=== PATIENT | female | born 1945 | race Caucasian/White ===

== ENCOUNTER 2017-08-10 15:36 | Inpatient (IN) | payer OTHER, MEDICAID ==
[2017-08-10 16:57] VITALS: BMI 20.5
[2017-08-10] MEDS ORDERED: FLUVIRIN IM ONE (16:57)
[2017-08-10] MEDS ORDERED: PREVNAR 13 IM ONE (16:57)
[2017-08-10 17:34] LABS: BASOPHILS % (AUTO) 0.6 % (0.2-1.0); EOSINOPHILS # (AUTO) 0.1 x10^3/uL (0.0-0.2); HEMATOCRIT 24.8 % (36.0-47.0); HEMOGLOBIN 8.6 g/dL (12.0-16.0); LYMPHOCYTES # (AUTO) 0.9 X10^3/uL (1.3-2.9); LYMPHOCYTES % (AUTO) 23.8 % (21.0-51.0); MEAN CORPUSCULAR HEMOGLOBIN 33.8 pg (27.0-34.0); MEAN CORPUSCULAR HGB CONC 34.6 g/dL (33.0-35.0); MEAN CORPUSCULAR VOLUME 97.8 fL (80.0-100.0); MEAN PLATELET VOLUME 9.4 fL (7.4-11.0); MONOCYTES # (AUTO) 0.4 x10^3/uL (0.3-0.8); NEUTROPHILS # (AUTO) 2.3 x10^3/uL (2.2-4.8); NEUTROPHILS % (AUTO) 62.6 % (42.0-75.0); PLATELET COUNT 177 X10^3/uL (150.0-450.0); RED BLOOD COUNT 2.53 X10^6/uL (3.5-5.4); RED CELL DISTRIBUTION WIDTH 13.7 % (11.6-16.5); WHITE BLOOD COUNT 3.6 X10^3/uL (3.6-10.0)
[2017-08-10] MEDS: NS 1000 ML 1,000 ML IV SCH (17:34)
[2017-08-10 17:46] LABS: CALCIUM 8.3 mg/dL (8.5-10.1); CARBON DIOXIDE 22.5 mmol/L (21-32); COR CA(FOR HYPOALB) 9.1 mg/dL (8.5-10.1); CREATININE 1.44 mg/dL (0.55-1.02); TOTAL PROTEIN 6.7 g/dL (6.4-8.2)
[2017-08-10 17:52] LABS: BILIRUBIN,URINE NEGATIVE (NEGATIVE); BLOOD/HEMOGLOBIN,URINE NEGATIVE (NEGATIVE); GLUCOSE, URINE NEGATIVE (NEGATIVE); KETONES,URINE NEGATIVE (NEGATIVE); LEUKOCYTE ESTERASE ,URINE 1+ (NEGATIVE); NITRITES,URINE NEGATIVE (NEGATIVE); PROTEIN,URINE 1+ (NEGATIVE); UROBILINOGEN,URINE NORMAL (NORMAL)
[2017-08-10 18:01] LABS: APPEARANCE,URINE SLIGHTLY HAZY (CLEAR); BACTERIA,URINE NEGATIVE /HPF (NEGATIVE); COLOR,URINE YELLOW (YELLOW); SQUAMOUS EPITHELIAL CELL,UR RARE /HPF (NEGATIVE)
[2017-08-10 18:02] LABS: HYALINE CASTS, URINE FEW /LPF (NEGATIVE); MUCUS,URINE FEW /HPF (NEGATIVE)
[2017-08-11] MEDS: NS 1000 ML 1,000 ML IV SCH ×3 (04:00→20:10)
[2017-08-11 06:45] LABS: BASOPHILS % (AUTO) 0.6 % (0.2-1.0); EOSINOPHILS # (AUTO) 0.1 x10^3/uL (0.0-0.2); EOSINOPHILS % (AUTO) 3.3 % (0.9-2.9); HEMATOCRIT 25.2 % (36.0-47.0); HEMOGLOBIN 8.6 g/dL (12.0-16.0); LYMPHOCYTES % (AUTO) 24.4 % (21.0-51.0); MEAN CORPUSCULAR HEMOGLOBIN 33.6 pg (27.0-34.0); MEAN CORPUSCULAR HGB CONC 34.3 g/dL (33.0-35.0); MEAN CORPUSCULAR VOLUME 98.1 fL (80.0-100.0); MEAN PLATELET VOLUME 10.5 fL (7.4-11.0); MONOCYTES # (AUTO) 0.4 x10^3/uL (0.3-0.8); MONOCYTES % (AUTO) 9.3 % (0.0-13.0); NEUTROPHILS # (AUTO) 2.5 x10^3/uL (2.2-4.8); NEUTROPHILS % (AUTO) 62.4 % (42.0-75.0); PLATELET COUNT 134 X10^3/uL (150.0-450.0); RED BLOOD COUNT 2.57 X10^6/uL (3.5-5.4); RED CELL DISTRIBUTION WIDTH 13.8 % (11.6-16.5)
[2017-08-11 07:02] LABS: ALANINE AMINOTRANSFERASE 21 Units/L (12-78); ALBUMIN 2.7 g/dL (3.4-5.0); ALKALINE PHOSPHATASE 62 Units/L (46-116); ASPARTATE AMINO TRANSFERASE 36 Units/L (15-37); BLOOD UREA NITROGEN 22 mg/dL (7-18); CALCIUM 7.8 mg/dL (8.5-10.1); CARBON DIOXIDE 19.6 mmol/L (21-32); CHLORIDE 113 mmol/L (98-107); COR CA(FOR HYPOALB) 8.8 mg/dL (8.5-10.1); CREATININE 1.16 mg/dL (0.55-1.02); SODIUM 142 mmol/L (136-145); TOTAL PROTEIN 6.3 g/dL (6.4-8.2); eGFR BLACK RACES 59 (>60); eGFR NON BLACK RACES 49 (>60)
[2017-08-11] MEDS ORDERED: FLUVIRIN IM ONE (08:54)
[2017-08-11 12:01] LABS: IRON 66 ug/dL (50-175); TOTAL IRON BINDING CAPACITY 251 ug/dL (250-450)
[2017-08-11] MEDS: PROTONIX INJ 40 MG VIAL IVP SCH ×2 (13:43→20:10)
[2017-08-11] MEDS: PEPCID 20 MG IV PREMIX* 20 MG/50 ML BAG IV SCH ×2 (13:43→20:10)
[2017-08-11] MEDS ORDERED: PREVNAR 13 IM ONE (14:03)
--- NOTE | 2017-08-11 18:29 | DR.CONSULT ---
Consult - Consultation for Day of: Date: 08/11/17 - Chief Complaint Chief Complaint: Patient referred for GI Bleed. Patient with complaints of melena. - Allergies Allergies/Adverse Reactions: Allergies Allergy/AdvReac Type Severity Reaction Status Date / Time Sulfa (Sulfonamide Allergy Verified 08/10/17 16:56 Antibiotics) [SULFA] - History of Present Illness History of Present Illness: Patient is a 71yo female who referred for GI Bleed. Patient with complaints of melena that has been going on for a while but she thought it was because of her iron. She states that she has a colonoscopy before but its was years ago. Hgb is 5.6, Hct 25.2, BUN 22, Creat 1.16 - Past Medical History Past Medical History: Hypertension, Hypothyroidism - Past Surgical History Surgical History: Cholecystectomy - Family History Family Medical History: Diabetes Mellitus, Cancer, OR, Coronary Artery Disease, Heart Failure, Sudden Cardiac , Hypertension - Social History Type of Tobacco Use: None Alcohol Use: None Drug Use: None - Medications Home Medications: Calcium Carb + Vit D [OSCAL+D or CALTRATE+D] 1 tab PO DAILY 08/10/17 [History Confirmed 08/10/17] Cetirizine HCl 10 mg PO DAILY 08/10/17 [History Confirmed 08/10/17] Docusate Sodium [Stool Softener] 50 mg PO DAILY 08/10/17 [History Confirmed ] Megestrol Acetate [Megace] 40 mg PO BID 08/10/17 [History Confirmed 08/10/17] - Review of Systems Constitutional: No Symptoms Reported Eyes: No Symptoms Reported ENT: No Symptoms Reported Respiratory: No Symptoms Reported Cardiovascular: No Symptoms Reported Gastrointestinal: See HPI, Melena Genitourinary: No Symptoms Reported Musculoskeletal: No Symptoms Reported Skin: No Symptoms Reported Neurological: No Symptoms Reported - Physical Exam Vital Signs: Temperature 98.3 F Pulse Rate [Apical] 59 Respiratory Rate 22 Blood Pressure [Left Arm] 172/78 Blood Pressure 151/83 O2 Sat by Pulse Oximetry 100 Oriented: Normal Eyes: Normal Ear: Normal Nose: Normal Throat: Normal Respiratory: Clear Throughout Cardiovascular: Normal : Normal Auscultation: Bowel Sounds: Normal Palpation: Normal Tenderness: Normal Skin: Normal Musculoskeletal: Normal Psychiatric: Normal Mood Description: Calm Affect: Normal Speech Pattern: Clear - Plan Plan: Assessment. 1. Anemia, Melena r/o upper GI Bleed. Plan. 1. Cont protonix IV, Hemoccult stool, EGD in am. Plan reviewed with Dr. Mancia
[2017-08-12] MEDS: NS 1000 ML 1,000 ML IV SCH ×4 (00:05→22:19)
[2017-08-12 06:06] LABS: BASOPHILS % (AUTO) 0.4 % (0.2-1.0); EOSINOPHILS # (AUTO) 0.1 x10^3/uL (0.0-0.2); EOSINOPHILS % (AUTO) 2.6 % (0.9-2.9); HEMATOCRIT 22.7 % (36.0-47.0); HEMOGLOBIN 7.8 g/dL (12.0-16.0); LYMPHOCYTES # (AUTO) 0.8 X10^3/uL (1.3-2.9); LYMPHOCYTES % (AUTO) 18.9 % (21.0-51.0); MEAN CORPUSCULAR HEMOGLOBIN 33.6 pg (27.0-34.0); MEAN CORPUSCULAR HGB CONC 34.3 g/dL (33.0-35.0); MEAN CORPUSCULAR VOLUME 97.7 fL (80.0-100.0); MEAN PLATELET VOLUME 10.7 fL (7.4-11.0); MONOCYTES # (AUTO) 0.4 x10^3/uL (0.3-0.8); MONOCYTES % (AUTO) 9.8 % (0.0-13.0); NEUTROPHILS # (AUTO) 2.8 x10^3/uL (2.2-4.8); NEUTROPHILS % (AUTO) 68.3 % (42.0-75.0); PLATELET COUNT 130 X10^3/uL (150.0-450.0); RED BLOOD COUNT 2.32 X10^6/uL (3.5-5.4); RED CELL DISTRIBUTION WIDTH 13.5 % (11.6-16.5); WHITE BLOOD COUNT 4.1 X10^3/uL (3.6-10.0)
[2017-08-12 06:26] LABS: ALANINE AMINOTRANSFERASE 18 Units/L (12-78); ALBUMIN 2.4 g/dL (3.4-5.0); ALKALINE PHOSPHATASE 57 Units/L (46-116); ASPARTATE AMINO TRANSFERASE 33 Units/L (15-37); BLOOD UREA NITROGEN 17 mg/dL (7-18); CALCIUM 7.7 mg/dL (8.5-10.1); CARBON DIOXIDE 19.9 mmol/L (21-32); CREATININE 1.09 mg/dL (0.55-1.02); SODIUM 142 mmol/L (136-145); TOTAL PROTEIN 5.8 g/dL (6.4-8.2); eGFR BLACK RACES > 60 (>60); eGFR NON BLACK RACES 52 (>60)
[2017-08-12 06:49] LABS: PLATELET MORPHOLOGY COMMENT NORMAL (NORMAL)
[2017-08-12 06:50] LABS: CHLORIDE 115 mmol/L (98-107)
[2017-08-12] MEDS: PROTONIX INJ 40 MG VIAL IVP SCH ×2 (09:17→22:12)
[2017-08-12] MEDS: PEPCID 20 MG IV PREMIX* 20 MG/50 ML BAG IV SCH ×2 (09:17→22:12)
[2017-08-12 09:28] LABS: CRYPTOSPORIDIUM PARVUM ANTIGEN NEGATIVE (NEGATIVE); GIARDIA LAMBLIA ANTIGEN NEGATIVE (NEGATIVE)
[2017-08-12] MEDS ORDERED: TYLENOL 325 MG TAB PO PRN (09:35)
[2017-08-12] MEDS ORDERED: NS 500 ML IV 500 ML IV ONE (09:35)
[2017-08-12] MEDS ORDERED: BENADRYL INJ 50 MG VIAL IVP PRN (09:35)
[2017-08-12] MEDS ORDERED: DIPRIVAN VIAL 20 ML ONE (10:29)
[2017-08-12] MEDS ORDERED: REQUIP PO PRN (10:37)
[2017-08-12] MEDS ORDERED: NORCO 10/325 TAB PO PRN (10:37)
[2017-08-12] MEDS ORDERED: DOCUSATE SODIUM 50 MG PO SCH (10:45)
--- NOTE | 2017-08-12 14:41 | PCM.PROG ---
Progress Note - Progress Note for Day of Date: 08/11/17 - Subjective Subjective: WAS ADMITTED FOR ANEMIA, POSSIBLE GI BLEED, AND DEHYDRATION. TODAY, SHE IS ALERT AND ORIENTED, LYING IN BED ON MORNING ROUNDS. SHE IS NOTED WITH COMPLAINTS OF MILD, DIFFUSE ABDOMINAL PAIN AND GENERALIZED WEAKNESS. SHE ALSO ADMITS TO DARK STOOLS. ON EXAMINATION, HEART IS REGULAR IN RATE AND RHYTHM. BILATERAL LUNGS ARE NOTED WITH DIMINISHED LUNG SOUNDS THROUGHOUT. ABDOMEN IS ROUND, SOFT, AND NOTED WITH DIFFUSE TENDERNESS ON PALPATION. NORMAL BOWEL SOUNDS NOTED IN ALL QUADRANTS. THERE IS NORMAL RANGE OF MOTION NOTED TO ALL EXTREMITIES. HER VITALS THIS MORNING ARE 99.3-62-20-100%-172 /83. LABS WERE OBTAINED THIS MORNING. ABNORMAL LAB VALUES INCLUDE THE FOLLOWING : RBC 2.57, HGB 8.6, HCT 25.2, CHLORIDE 113, CARBON DIOXIDE 19.6, BUN 22, CREATININE 1.16, GFR 49, CALCIUM 7.8, TOTAL PROTEIN 6.3, ALBUMIN 2.7. IRON, B12 , AND FOLIC ACID WITHIN NORMAL LIMITS. TODAY, WE PLAN TO START PEPCID 20MG IV Q12H AND PROTONIX 40MG IV Q12H. WE WILL CONSULT GASTROENTEROLOGY FOR POSSIBLE ENDOSCOPY. OTHERWISE, WE WILL CONTINUE WITH CURRENT PLAN OF CARE AND MONITOR H& H. WE PLAN TO FOLLOW UP WITH AM LABS AND CONTINUE TO MONITOR PATIENT. - Past Medical Family Social History Past Med/Fam/Surg Hx: No changes since H&P Allergies: Allergies Sulfa (Sulfonamide Antibiotics) [SULFA] Allergy (Verified 08/10/17 16:56) - Review of Systems ROS: No change since H&P - Vital Signs and I&O's Vital Signs: Temperature 99.0 F Pulse Rate [Apical] 57 Respiratory Rate 20 Blood Pressure [Left Arm] 166/74 Blood Pressure 151/83 O2 Sat by Pulse Oximetry 100 Intake and Output: Intake & Output 08/10/17 08/11/17 08/12/17 08/13/17 11:59 11:59 11:59 11:59 Intake Total 1143 3093 Output Total 1000 2700 Balance 143 393 - Physical Exam Oriented: Normal Eyes: Normal Ear: Normal Nose: Normal Throat: Normal Respiratory: Generalized, Diminished Cardiovascular: Normal : Normal Auscultation: Bowel Sounds: Normal Palpation: Normal Tenderness: Diffuse, Mild. negative: Rebound, Guarding, Rigidity Skin: Normal Musculoskeletal: Normal Psychiatric: Normal Mood Description: Calm Affect: Normal Speech Pattern: Clear, Appropriate - Laboratory and Diagnostics Result Diagrams: 08/12/17 05:30 08/12/17 05:30 Labs: 08/12/17 06:51 Stool - Final Laboratory WBC 4.1 X10^3/uL (3.6-10.0) 08/12/17 05:30 RBC 2.32 X10^6/uL (3.5-5.4) L 08/12/17 05:30 Hgb 7.8 g/dL (12.0-16.0) L 08/12/17 05:30 Hct 22.7 % (36.0-47.0) L 08/12/17 05:30 MCV 97.7 fL (80.0-100.0) 08/12/17 05:30 MCH 33.6 pg (27.0-34.0) 08/12/17 05:30 MCHC 34.3 g/dL (33.0-35.0) 08/12/17 05:30 RDW 13.5 % (11.6-16.5) 08/12/17 05:30 Plt Count 130 X10^3/uL (150.0-450.0) L 08/12/17 05:30 Plt Count Comment Adequate (ADEQUATE) 08/12/17 05:30 MPV 10.7 fL (7.4-11.0) 08/12/17 05:30 Neut % 68.3 % (42.0-75.0) 08/12/17 05:30 Lymph % 18.9 % (21.0-51.0) L 08/12/17 05:30 [place] % 9.8 % (0.0-13.0) 08/12/17 05:30 Eos % 2.6 % (0.9-2.9) 08/12/17 05:30 Baso % 0.4 % (0.2-1.0) 08/12/17 05:30 Neut # 2.8 x10^3/uL (2.2-4.8) 08/12/17 05:30 Lymph # 0.8 X10^3/uL (1.3-2.9) L 08/12/17 05:30 [place] # 0.4 x10^3/uL (0.3-0.8) 08/12/17 05:30 Eos # 0.1 x10^3/uL (0.0-0.2) 08/12/17 05:30 Baso # 0.0 X10^3/uL (0.0-0.1) 08/12/17 05:30 Absolute Nucleated RBC 0.1 /100WBC 08/12/17 05:30 Plt Morphology Comment Normal (NORMAL) 08/12/17 05:30 RBC Morphology Normal (NORMAL) 08/12/17 05:30 Sodium 142 mmol/L (136-145) 08/12/17 05:30 Corrected Sodium TNP 08/12/17 05:30 Potassium 3.9 mmol/L (3.5-5.1) 08/12/17 05:30 Chloride 115 mmol/L (98-107) H* 08/12/17 05:30 Carbon Dioxide 19.9 mmol/L (21-32) L 08/12/17 05:30 BUN 17 mg/dL (7-18) 08/12/17 05:30 Creatinine 1.09 mg/dL (0.55-1.02) H 08/12/17 05:30 Est GFR (MDRD) Af Amer > 60 (>60) 08/12/17 05:30 Est GFR (MDRD) Non-Af 52 (>60) L 08/12/17 05:30 Glucose 76 mg/dL (65-99) 08/12/17 05:30 Calcium 7.7 mg/dL (8.5-10.1) L 08/12/17 05:30 Corrected Calcium 9.0 mg/dL (8.5-10.1) 08/12/17 05:30 Iron 66 ug/dL (50-175) 08/11/17 06:10 TIBC 251 ug/dL (250-450) 08/11/17 06:10 Total Bilirubin 0.40 mg/dL (0.2-1.0) 08/12/17 05:30 AST 33 Units/L (15-37) 08/12/17 05:30 ALT 18 Units/L (12-78) 08/12/17 05:30 Alkaline Phosphatase 57 Units/L (46-116) 08/12/17 05:30 Total Protein 5.8 g/dL (6.4-8.2) L 08/12/17 05:30 Albumin 2.4 g/dL (3.4-5.0) L 08/12/17 05:30 Globulin 3.4 g/dL (2.5-4.5) 08/12/17 05:30 Albumin/Globulin Ratio 0.7 Ratio (1.1-2.1) L 08/12/17 05:30 Vitamin B12 554 pg/mL (193-986) 08/11/17 06:10 Folate > 20.0 ng/mL (>8.6) 08/11/17 06:10 Specimen Type Clean catch urine 08/10/17 17:41 Urine Color Yellow (YELLOW) 08/10/17 17:41 Urine Appearance Slightly hazy (CLEAR) 08/10/17 17:41 Urine pH 6.0 (5.0 - 8.0) 08/10/17 17:41 Ur Specific [place] 1.020 (1.000-1.030) 08/10/17 17:41 Urine Protein 1+ (NEGATIVE) 08/10/17 17:41 Urine Glucose (UA) Negative (NEGATIVE) 08/10/17 17:41 Urine Ketones Negative (NEGATIVE) 08/10/17 17:41 Urine Occult Blood Negative (NEGATIVE) 08/10/17 17:41 Urine Nitrite Negative (NEGATIVE) 08/10/17 17:41 Urine Bilirubin Negative (NEGATIVE) 08/10/17 17:41 Urine Urobilinogen Normal (NORMAL) 08/10/17 17:41 Ur Leukocyte Esterase 1+ (NEGATIVE) 08/10/17 17:41 Urine RBC 1-3 /HPF (NONE SEEN) 08/10/17 17:41 Urine WBC 3-5 /HPF (NONE SEEN) 08/10/17 17:41 Ur Squamous Epith Cells Rare /HPF (NEGATIVE) 08/10/17 17:41 Urine Bacteria Negative /HPF (NEGATIVE) 08/10/17 17:41 Hyaline Casts Few /LPF (NEGATIVE) 08/10/17 17:41 Urine Mucus Few /HPF (NEGATIVE) 08/10/17 17:41 Ur Culture Indicated? No/not indicated 08/10/17 17:41 Stool Description 100 g formed dk brn 08/12/17 06:51 Stl Occult Blood (IFOB) Positive (NEGATIVE) A 08/12/17 06:51 Stl C. diff Tox B Gene Negative (NEGATIVE) 08/12/17 06:51 Stl C. diff [id number] Negative (NEGATIVE) 08/12/17 06:51 Cryptosporid parvum Ag Negative (NEGATIVE) 08/12/17 06:51 E. histolytica Antigen Negative (NEGATIVE) 08/12/17 06:51 Giardia lamblia Ag Negative (NEGATIVE) 08/12/17 06:51 Surg PTH Frozen Section To follow 08/12/17 12:05 Blood Type O POSITIVE 08/12/17 09:52 Antibody Screen Negative 08/12/17 09:52 Crossmatch See Detail 08/12/17 09:52 - Plan (1) Anemia Status: Acute Qualifiers: Anemia type: iron deficiency Iron deficiency anemia type: chronic blood loss Qualified Code(s): D50.0 - Iron deficiency anemia secondary to blood loss (chronic) Plan: MONITOR H&H, CONSULT GASTROENTEROLOGY, CONTINUE TO MONITOR (2) GI bleed Status: Acute Qualifiers: GI bleed type/associated pathology: melena Qualified Code(s): K92.1 - Melena Plan: MONITOR H&H, CONSULT GASTROENTEROLOGY, CONTINUE TO MONITOR (3) Dehydration Status: Acute Plan: NORMAL SALINE AT 100ML/HR, CONTINUE TO MONITOR
--- NOTE | 2017-08-12 14:43 | DR.UPDATE ---
H&P Update History and Physical Update: WAS SEEN IN THE OFFICE ON 08/10/17. SHE WAS ADMITTED FOR ANEMIA, POSSIBLE GI BLEED, AND DEHYDRATION. A H&P WAS COMPLETED PRIOR TO ADMISSION. PATIENT HAS BEEN SEEN AND EXAMINED WITH NO CHANGES NOTED TO H&P. Changes noted: NO Yes with the following:
[2017-08-12] MEDS: ZyrTEC TAB 10 MG PO SCH (15:16)
[2017-08-12] MEDS: VASOTEC TAB 10 MG PO SCH ×2 (15:16→22:12)
[2017-08-12] MEDS: MEGACE PO SCH ×2 (15:16→22:12)
[2017-08-12] MEDS: OSCAL+D or CALTRATE+D PO SCH (15:16)
[2017-08-12] MEDS: SYNTHROID 75 mcg TAB PO SCH (15:16)
[2017-08-12] MEDS: HEMOCYTE-PLUS PO SCH (15:16)
[2017-08-12] MEDS ORDERED: PATIENT'S HOME MEDICATION (Fenofibrate [Fenofibrate 160 Mg] 160 MG) PO SCH (21:00)
[2017-08-12] MEDS ORDERED: TRICOR TAB 160 MG PO SCH (21:00)
[2017-08-12] MEDS ORDERED: ZOCOR TAB 20 MG PO SCH (21:00)
[2017-08-12] MEDS ORDERED: COLACE CAP 100 MG PO SCH (21:00)
[2017-08-12 22:00] LABS: HEMATOCRIT 32.1 % (36.0-47.0); HEMOGLOBIN 11.1 g/dL (12.0-16.0)
[2017-08-13 06:45] LABS: BASOPHILS % (AUTO) 0.6 % (0.2-1.0); EOSINOPHILS # (AUTO) 0.1 x10^3/uL (0.0-0.2); EOSINOPHILS % (AUTO) 2.3 % (0.9-2.9); HEMATOCRIT 31.2 % (36.0-47.0); HEMOGLOBIN 10.8 g/dL (12.0-16.0); LYMPHOCYTES # (AUTO) 0.8 X10^3/uL (1.3-2.9); LYMPHOCYTES % (AUTO) 19.2 % (21.0-51.0); MEAN CORPUSCULAR HEMOGLOBIN 31.5 pg (27.0-34.0); MEAN CORPUSCULAR HGB CONC 34.6 g/dL (33.0-35.0); MEAN CORPUSCULAR VOLUME 90.9 fL (80.0-100.0); MONOCYTES # (AUTO) 0.4 x10^3/uL (0.3-0.8); MONOCYTES % (AUTO) 9.6 % (0.0-13.0); NEUTROPHILS # (AUTO) 2.7 x10^3/uL (2.2-4.8); NEUTROPHILS % (AUTO) 68.3 % (42.0-75.0); PLATELET COUNT 123 X10^3/uL (150.0-450.0); RED BLOOD COUNT 3.43 X10^6/uL (3.5-5.4); WHITE BLOOD COUNT 3.9 X10^3/uL (3.6-10.0)
[2017-08-13 07:25] LABS: ALANINE AMINOTRANSFERASE 19 Units/L (12-78); ALBUMIN 2.5 g/dL (3.4-5.0); ALKALINE PHOSPHATASE 58 Units/L (46-116); ASPARTATE AMINO TRANSFERASE 37 Units/L (15-37); BLOOD UREA NITROGEN 17 mg/dL (7-18); CALCIUM 7.8 mg/dL (8.5-10.1); CARBON DIOXIDE 15.4 mmol/L (21-32); CREATININE 1.05 mg/dL (0.55-1.02); SODIUM 144 mmol/L (136-145); TOTAL PROTEIN 5.7 g/dL (6.4-8.2); eGFR BLACK RACES > 60 (>60); eGFR NON BLACK RACES 55 (>60)
[2017-08-13 07:35] LABS: CHLORIDE 115 mmol/L (98-107)
[2017-08-13] MEDS: ZyrTEC TAB 10 MG PO SCH (09:32)
[2017-08-13] MEDS: PROTONIX INJ 40 MG VIAL IVP SCH (09:32)
[2017-08-13] MEDS: VASOTEC TAB 10 MG PO SCH (09:32)
[2017-08-13] MEDS: OSCAL+D or CALTRATE+D PO SCH (09:33)
[2017-08-13] MEDS: MEGACE PO SCH (09:33)
[2017-08-13] MEDS: SYNTHROID 75 mcg TAB PO SCH (09:33)
[2017-08-13] MEDS: HEMOCYTE-PLUS PO SCH (09:33)
[2017-08-13] MEDS: PEPCID 20 MG IV PREMIX* 20 MG/50 ML BAG IV SCH (09:33)
[2017-08-13 12:51] VITALS: BP 192/81
== END 2017-08-13 12:30 | disposition home or self-care (01) | DRG 812 ==
LOC: ICU 15:36
PROVIDERS: ADMIT Internal Medicine; ATTEND Internal Medicine
PROC: 3E0234Z Introduction of Serum, Toxoid and Vaccine into Muscle, Percutaneous Approach (ICD-10-PCS; 2017-08-11)
PROC: 3E0234Z Introduction of Serum, Toxoid and Vaccine into Muscle, Percutaneous Approach (ICD-10-PCS; 2017-08-11)
PROC: 0DB88ZX Excision of Small Intestine, Via Natural or Artificial Opening Endoscopic, Diagnostic (ICD-10-PCS; 2017-08-12)
PROC: 30233N1 Transfusion of Nonautologous Red Blood Cells into Peripheral Vein, Percutaneous Approach (ICD-10-PCS; 2017-08-12)
PROC: 30233N1 Transfusion of Nonautologous Red Blood Cells into Peripheral Vein, Percutaneous Approach (ICD-10-PCS; 2017-08-12)
PROC: 0DB68ZX Excision of Stomach, Via Natural or Artificial Opening Endoscopic, Diagnostic (ICD-10-PCS; principal; 2017-08-12 20:15)
DX: D50.0 Iron deficiency anemia secondary to blood loss (chronic) (principal); K92.1 Melena; E86.0 Dehydration; K21.9 Gastro-esophageal reflux disease without esophagitis; R07.89 Other chest pain; R06.02 Shortness of breath; G47.62 Sleep related leg cramps; I10 Essential (primary) hypertension; R10.84 Generalized abdominal pain; R53.1 Weakness; E03.8 Other specified hypothyroidism; K25.9 Gastric ulcer, unspecified as acute or chronic, without hemorrhage or perforation; K20.8 Other esophagitis
CPT/HCPCS: 36415; 36430; 80053; 81001; 82274; 82607; 82746; 83540; 83550; 85014; 85018; 85025; 86850; 86900; 86901; 86922; 87045; 87328; 87329; 87336; 87338; 87427; 87493; 87899; 90686; 99100; A4216; A4222; C9113; P9016; S0028; S0179; 90670; A4217; J1200; J3490

== ENCOUNTER 2019-04-21 10:54 | Inpatient (IN) ==
[2019-04-21 14:25] LABS: BASOPHILS % (AUTO) 0.6 % (0.2-1.0); EOSINOPHILS # (AUTO) 0.1 x10^3/uL (0.0-0.2); EOSINOPHILS % (AUTO) 1.4 % (0.9-2.9); HEMATOCRIT 28.1 % (36.0-47.0); HEMOGLOBIN 9.5 g/dL (12.0-16.0); LYMPHOCYTES # (AUTO) 0.4 X10^3/uL (1.3-2.9); LYMPHOCYTES % (AUTO) 8.8 % (21.0-51.0); MEAN CORPUSCULAR HEMOGLOBIN 33.7 pg (27.0-34.0); MEAN CORPUSCULAR VOLUME 99.2 fL (80.0-100.0); MONOCYTES # (AUTO) 0.3 x10^3/uL (0.3-0.8); MONOCYTES % (AUTO) 6.3 % (0.0-13.0); NEUTROPHILS # (AUTO) 3.8 x10^3/uL (2.2-4.8); NEUTROPHILS % (AUTO) 82.9 % (42.0-75.0); PLATELET COUNT 193 X10^3/uL (150.0-450.0); RED BLOOD COUNT 2.83 X10^6/uL (3.5-5.4); RED CELL DISTRIBUTION WIDTH 13.7 % (11.6-16.5); WHITE BLOOD COUNT 4.6 X10^3/uL (3.6-10.0)
[2019-04-21 14:37] LABS: ALANINE AMINOTRANSFERASE 24 Units/L (12-78); ALBUMIN 3.8 g/dL (3.4-5.0); ALKALINE PHOSPHATASE 88 Units/L (46-116); ASPARTATE AMINO TRANSFERASE 50 Units/L (15-37); BLOOD UREA NITROGEN 42 mg/dL (7-18); CALCIUM 8.9 mg/dL (8.5-10.1); CARBON DIOXIDE 19.7 mmol/L (21-32); CHLORIDE 103 mmol/L (98-107); COR NA(FOR HYPERGLY) 137 mmol/L (136-145); SODIUM 136 mmol/L (136-145); TOTAL PROTEIN 7.9 g/dL (6.4-8.2); eGFR NON BLACK RACES 22 (>60)
--- NOTE | 2019-04-21 14:57 | RAD ---
HISTORY: Shortness of breath. Prior history of hypertension. Study: Single-view chest Comparison: 05/24/2016. Findings: Trachea is midline. Heart size is normal. There is aortic uncoiling and atherosclerotic calcification of the aortic arch. There is hyperinflation of the lungs with only a few areas of increased interstitial markings bilaterally. Findings may represent very mild COPD. No CHF, infiltrate, pleural fluid or pneumothorax is seen. There is multilevel thoracic spondylosis. IMPRESSION: Findings likely indicate very mild COPD without acute abnormality. Reported By:
[2019-04-21] MEDS: NS 1000 ML 1,000 ML IV SCH ×2 (16:00→20:21)
[2019-04-21 17:01] VITALS: BMI 18.3
[2019-04-21] MEDS: ROCEPHIN VIAL 1 GRAM 1 G in NS 100 ML IV + SPIKE MINIBAG* 100 ML IV SCH (20:21)
[2019-04-21 23:45] LABS: BILIRUBIN,URINE NEGATIVE (NEGATIVE); BLOOD/HEMOGLOBIN,URINE 1+ (NEGATIVE); GLUCOSE, URINE NEGATIVE (NEGATIVE); KETONES,URINE NEGATIVE (NEGATIVE); LEUKOCYTE ESTERASE ,URINE 1+ (NEGATIVE); NITRITES,URINE NEGATIVE (NEGATIVE); PROTEIN,URINE NEGATIVE (NEGATIVE); UROBILINOGEN,URINE NORMAL (NORMAL)
[2019-04-21 23:50] LABS: APPEARANCE,URINE CLEAR (CLEAR); BACTERIA,URINE NEGATIVE /HPF (NEGATIVE); COLOR,URINE YELLOW (YELLOW); RBC,URINE NONE SEEN /HPF (0-3); SQUAMOUS EPITHELIAL CELL,UR RARE /HPF (NEGATIVE)
[2019-04-22] MEDS: NS 1000 ML 1,000 ML IV SCH ×5 (00:21→19:57)
[2019-04-22 05:36] LABS: BASOPHILS % (AUTO) 0.5 % (0.2-1.0); EOSINOPHILS # (AUTO) 0.1 x10^3/uL (0.0-0.2); EOSINOPHILS % (AUTO) 2.4 % (0.9-2.9); HEMATOCRIT 22.8 % (36.0-47.0); HEMOGLOBIN 7.6 g/dL (12.0-16.0); LYMPHOCYTES # (AUTO) 0.5 X10^3/uL (1.3-2.9); LYMPHOCYTES % (AUTO) 20.7 % (21.0-51.0); MEAN CORPUSCULAR HEMOGLOBIN 33.6 pg (27.0-34.0); MEAN CORPUSCULAR HGB CONC 33.5 g/dL (33.0-35.0); MEAN CORPUSCULAR VOLUME 100.4 fL (80.0-100.0); MEAN PLATELET VOLUME 8.6 fL (7.4-11.0); MONOCYTES # (AUTO) 0.3 x10^3/uL (0.3-0.8); MONOCYTES % (AUTO) 12.2 % (0.0-13.0); NEUTROPHILS # (AUTO) 1.5 x10^3/uL (2.2-4.8); NEUTROPHILS % (AUTO) 64.2 % (42.0-75.0); PLATELET COUNT 138 X10^3/uL (150.0-450.0); RED BLOOD COUNT 2.27 X10^6/uL (3.5-5.4); RED CELL DISTRIBUTION WIDTH 13.8 % (11.6-16.5); WHITE BLOOD COUNT 2.3 X10^3/uL (3.6-10.0)
[2019-04-22 05:56] LABS: ALANINE AMINOTRANSFERASE 15 Units/L (12-78); ALBUMIN 2.7 g/dL (3.4-5.0); ALKALINE PHOSPHATASE 66 Units/L (46-116); ASPARTATE AMINO TRANSFERASE 34 Units/L (15-37); BLOOD UREA NITROGEN 35 mg/dL (7-18); CALCIUM 7.7 mg/dL (8.5-10.1); CARBON DIOXIDE 23.5 mmol/L (21-32); CHLORIDE 111 mmol/L (98-107); COR CA(FOR HYPOALB) 8.7 mg/dL (8.5-10.1); CREATININE 1.71 mg/dL (0.55-1.02); SODIUM 143 mmol/L (136-145); TOTAL PROTEIN 5.9 g/dL (6.4-8.2); URIC ACID 10.6 mg/dL (2.6-6.0); eGFR NON BLACK RACES 31 (>60)
[2019-04-22 06:11] LABS: HYPOCHROMASIA 1+; PLATELET MORPHOLOGY COMMENT NORMAL (NORMAL)
[2019-04-22] MEDS ORDERED: POTASSIUM CHL 40 MEQ/NS 0.45% 500 ML IV PRN (06:20)
[2019-04-22] MEDS ORDERED: POTASSIUM CHL 60 MEQ/NS 0.45% 500 ML IV PRN (06:20)
[2019-04-22] MEDS ORDERED: MICRO K EXTEN CAP 10 MEQ PO PRN (06:20)
[2019-04-22] MEDS ORDERED: KLOR-CON PO PRN (06:20)
[2019-04-22] MEDS ORDERED: K-RIDER 10 MEQ/NS 100 ML 10 MEQ/100 ML BAG IV PRN (06:20)
[2019-04-22] MEDS ORDERED: POTASSIUM CHLORIDE LIQ 20 MEQ UDC PO PRN (06:20)
[2019-04-22] MEDS: K-DUR TAB 20 MEQ PO PRN (06:33)
[2019-04-22] MEDS: ROCEPHIN VIAL 1 GRAM 1 G in NS 100 ML IV + SPIKE MINIBAG* 100 ML IV SCH (09:25)
[2019-04-22] MEDS ORDERED: ZOFRAN INJ 4 MG VIAL IVP PRN (11:55)
[2019-04-22] MEDS ORDERED: XANAX PO PRN (14:19)
[2019-04-22] MEDS: PEPCID TAB 20 MG PO SCH (21:34)
[2019-04-22] MEDS: SINGULAIR TAB 10 MG PO SCH (21:34)
[2019-04-22] MEDS: APRESOLINE TAB 25 MG PO SCH (21:34)
[2019-04-22] MEDS: REQUIP PO SCH (21:34)
[2019-04-22] MEDS: ZOCOR TAB 20 MG PO SCH (21:35)
[2019-04-22] MEDS: COLACE CAP 100 MG PO SCH (21:35)
[2019-04-22] MEDS: PROTONIX TAB 40 MG PO SCH (21:35)
[2019-04-22] MEDS: ZANTAC PO SCH (21:40)
--- NOTE | 2019-04-22 22:54 | DR.UPDATE ---
H&P Update History and Physical Update: History and Physical reviewed and patient examined. Changes noted: Yes with the following: PRESENTE TO THE OFFICE WITH COMPLAINTS OF DIZZINESS, NAUSEA, VOMITING, WEAKNESS, AND FATIGUE. SHE ALSO REPORTED MILD, LOWER ABDOMINAL PAIN AND PAINFUL URINATION. SHE HAS A HISTORY OF ANEMIA. SHE WAS ADMITTED FOR FURTHER EVALUATION AND TREATMENT OF DEHYDRATION, RENAL FAILURE, ANEMIA, UTI, AND GOUT. ON ADMISSION, WE WILL OBTAIN LABS, A URINALYSIS, URINE CULTURE, URIC ACID. WE WILL START NORMAL SALINE AT 125ML/HR, ROCEPHIN 1G IV DAILY, AND WILL REVIEW HER HOME MEDICATIONS. OTHERWISE, WE WILL FOLLOW UP WITH AM LABS AND CONTINUE TO MONITOR. H&P Reviewed: Yes Patient was examined?: Yes
[2019-04-23] MEDS: NS 1000 ML 1,000 ML IV SCH ×3 (04:42→21:29)
[2019-04-23 05:32] LABS: BASOPHILS % (AUTO) 0.6 % (0.2-1.0); EOSINOPHILS # (AUTO) 0.1 x10^3/uL (0.0-0.2); LYMPHOCYTES # (AUTO) 0.5 X10^3/uL (1.3-2.9); LYMPHOCYTES % (AUTO) 19.8 % (21.0-51.0); MEAN CORPUSCULAR HGB CONC 33.8 g/dL (33.0-35.0); MEAN CORPUSCULAR VOLUME 100.6 fL (80.0-100.0); MEAN PLATELET VOLUME 8.5 fL (7.4-11.0); MONOCYTES # (AUTO) 0.3 x10^3/uL (0.3-0.8); MONOCYTES % (AUTO) 12.1 % (0.0-13.0); NEUTROPHILS # (AUTO) 1.5 x10^3/uL (2.2-4.8); NEUTROPHILS % (AUTO) 64.5 % (42.0-75.0); PLATELET COUNT 116 X10^3/uL (150.0-450.0); RED BLOOD COUNT 1.97 X10^6/uL (3.5-5.4); RED CELL DISTRIBUTION WIDTH 14.1 % (11.6-16.5); WHITE BLOOD COUNT 2.4 X10^3/uL (3.6-10.0)
[2019-04-23 05:46] LABS: ALANINE AMINOTRANSFERASE 17 Units/L (12-78); ALBUMIN 2.2 g/dL (3.4-5.0); ALKALINE PHOSPHATASE 55 Units/L (46-116); ASPARTATE AMINO TRANSFERASE 30 Units/L (15-37); BLOOD UREA NITROGEN 22 mg/dL (7-18); CALCIUM 7.5 mg/dL (8.5-10.1); CARBON DIOXIDE 19.6 mmol/L (21-32); COR CA(FOR HYPOALB) 8.9 mg/dL (8.5-10.1); CREATININE 1.22 mg/dL (0.55-1.02); SODIUM 145 mmol/L (136-145); TOTAL PROTEIN 5.1 g/dL (6.4-8.2); eGFR NON BLACK RACES 46 (>60)
[2019-04-23 05:58] LABS: HEMATOCRIT 19.8 % (36.0-47.0); HEMOGLOBIN 6.7 g/dL (12.0-16.0)
[2019-04-23 05:59] LABS: BAND NEUTROPHILS % 4 % (0-10); HYPOCHROMASIA 1+; PLATELET MORPHOLOGY COMMENT NORMAL (NORMAL)
[2019-04-23 06:06] LABS: CHLORIDE 116 mmol/L (98-107)
[2019-04-23] MEDS: SYNTHROID 50 mcg TAB PO SCH ×2 (06:28→16:50)
--- NOTE | 2019-04-23 07:56 | RAD ---
Exam: Portable chest History: 73-year-old female with COPD. Shortness of breath. Comparison: Previous chest radiograph from 04/21/2019 Findings: Heart size and pulmonary vasculature are normal. Lungs are clear with no infiltrate or significant effusion on either side. Bony thorax is unremarkable as well. Impression: Stable exam with no acute cardiopulmonary abnormality seen Reported By:
[2019-04-23] MEDS: ZANTAC PO SCH (08:40)
[2019-04-23] MEDS: ROCEPHIN VIAL 1 GRAM 1 G in NS 100 ML IV + SPIKE MINIBAG* 100 ML IV SCH (08:40)
[2019-04-23] MEDS: PEPCID TAB 20 MG PO SCH (08:40)
[2019-04-23] MEDS: HEMOCYTE-PLUS PO SCH (08:41)
[2019-04-23] MEDS: APRESOLINE TAB 25 MG PO SCH ×2 (08:41→21:29)
[2019-04-23] MEDS: REQUIP PO SCH ×2 (08:41→21:29)
[2019-04-23] MEDS: ZyrTEC TAB 10 MG PO SCH (08:41)
[2019-04-23] MEDS: PROTONIX TAB 40 MG PO SCH ×2 (08:41→21:29)
[2019-04-23] MEDS ORDERED: NS 500 ML IV 500 ML IV ONE (11:12)
[2019-04-23 19:36] LABS: HEMATOCRIT 30.8 % (36.0-47.0); HEMOGLOBIN 10.6 g/dL (12.0-16.0)
[2019-04-23] MEDS: COLACE CAP 100 MG PO SCH (21:29)
[2019-04-23] MEDS: ZOCOR TAB 20 MG PO SCH (21:29)
[2019-04-23] MEDS: SINGULAIR TAB 10 MG PO SCH (21:29)
[2019-04-23] MEDS: TRICOR TAB 160 MG PO SCH (21:29)
--- NOTE | 2019-04-23 21:58 | PCM.PROG ---
Progress Note - Progress Note for Day of Date of Exam: 04/22/19 - Subjective Subjective: WAS ADMITTED FFOR DEHYDRATION, RENAL FAILURE, ANEMIA, UTI, AND A GOUT FLARE. TODAY, SHE IS ALERT AND ORIENTED, LYING IN BED ON MORNING ROUNDS, SHE REPORTS GENERALIZED WEAKNESS AND GENERALIZED PAIN. ON EXAMINATION, HEART IS REGULAR IN RATE AND RHYTHM. BILATERAL LUNGS ARE NOTED WITH DIMINISHED LUNG SOUNDS THROUGHOUT. ABDOMEN IS ROUND, SOFT, AD NOTED WITH SUPRAPUBIC TENDERNESS. HER VITALS THIS MORNING ARE: 98.1-76-18-100%-121/74. LABS WERE OBTAINED. ABNORMAL LAB VALUES INCLUDE THE FOLLOWING: WBC 2.3, RBC 2.27, HGB 7.6, HCT 22.8, PLT COUNT 138, CHLORIDE 111, BUN 35, CREATININE 1.71, URIC ACID 10.5, CALCIUM 7.7, TOTAL PROTEIN 5.9, ALUBMIN 2.7. SHE IS CURRENTLY RECEIVING ROCEPHIN 1G IV DAILY AND NORMAL SALINE AT 50ML/HR. WE WILL RESUME HER HOME MEDICATIONS TODAY AND START THE POTASSIUM PROTOCOL. OTHERWISE, WE PLAN TO FOLLOW UP WITH AM LABS AND CONTINUE TO MONITOR. - Past Medical Family Social History Past Med/Fam/Surg Hx: No changes since H&P Allergies: Allergies Sulfa (Sulfonamide Antibiotics) [SULFA] Allergy (Verified 08/10/17 16:56) - Review of Systems ROS: No change since H&P - Vital Signs and I&O's Vital Signs: Temperature 98.3 F Pulse Rate [Right Brachial] 66 Respiratory Rate 20 Blood Pressure [Right Arm] 141/63 Blood Pressure [Left Arm] 121/74 Blood Pressure 160/76 O2 Sat by Pulse Oximetry 98 Intake and Output: Intake & Output 04/21/19 04/22/19 04/23/19 04/24/19 11:59 11:59 11:59 11:59 Intake Total 2070 / 2070 2180 / 2180 1480 / 1480 Output Total 600 / 600 Balance 1470 / 1470 2180 / 2180 1480 / 1480 - Physical Exam Oriented: Normal Eyes: Normal Ear: Normal Nose: Normal Throat: Normal Respiratory: Generalized, Diminished Cardiovascular: Normal : Normal Auscultation: Bowel Sounds: Normal Palpation: Normal Tenderness: Suprapubic, Mild. negative: Rebound, Guarding, Rigidity Skin: Decreased Turgur Musculoskeletal: Normal Psychiatric: Normal Mood Description: Calm Affect: Normal Speech Pattern: Clear, Appropriate - Laboratory and Diagnostics Result Diagrams: 04/23/19 19:20 04/23/19 04:10 Labs: 04/21/19 23:25 Urine,Clean Catch Urine Culture - Preliminary Laboratory WBC 2.4 X10^3/uL (3.6-10.0) L 04/23/19 04:10 RBC 1.97 X10^6/uL (3.5-5.4) L 04/23/19 04:10 Hgb 10.6 g/dL (12.0-16.0) L D 04/23/19 19:20 Hct 30.8 % (36.0-47.0) L 04/23/19 19:20 MCV 100.6 fL (80.0-100.0) H 04/23/19 04:10 MCH 34.0 pg (27.0-34.0) 04/23/19 04:10 MCHC 33.8 g/dL (33.0-35.0) 04/23/19 04:10 RDW 14.1 % (11.6-16.5) 04/23/19 04:10 Plt Count 116 X10^3/uL (150.0-450.0) L 04/23/19 04:10 Plt Count Comment Decreased (ADEQUATE) A 04/23/19 04:10 MPV 8.5 fL (7.4-11.0) 04/23/19 04:10 Neut % (Auto) 64.5 % (42.0-75.0) 04/23/19 04:10 Lymph % (Auto) 19.8 % (21.0-51.0) L 04/23/19 04:10 [place] % (Auto) 12.1 % (0.0-13.0) 04/23/19 04:10 Eos % (Auto) 3.0 % (0.9-2.9) H 04/23/19 04:10 Baso % (Auto) 0.6 % (0.2-1.0) 04/23/19 04:10 Neut # (Auto) 1.5 x10^3/uL (2.2-4.8) L 04/23/19 04:10 Lymph # (Auto) 0.5 X10^3/uL (1.3-2.9) L 04/23/19 04:10 [place] # (Auto) 0.3 x10^3/uL (0.3-0.8) 04/23/19 04:10 Eos # (Auto) 0.1 x10^3/uL (0.0-0.2) 04/23/19 04:10 Baso # (Auto) 0.0 X10^3/uL (0.0-0.1) 04/23/19 04:10 Absolute Nucleated RBC 0.0 /100WBC 04/23/19 04:10 Total Counted 100 04/23/19 04:10 Neutrophils % (Manual) 69 % (39-76) 04/23/19 04:10 Band Neutrophils % 4 % (0-10) 04/23/19 04:10 Lymphocytes % (Manual) 17 % (13-43) 04/23/19 04:10 Monocytes % (Manual) 10 % (4-9) H 04/23/19 04:10 Eosinophils % (Manual) 3 % (0-6) 04/22/19 04:07 Plt Morphology Comment Normal (NORMAL) 04/23/19 04:10 RBC Morphology Abnormal (NORMAL) A 04/23/19 04:10 Hypochromasia 1+ A 04/23/19 04:10 Sodium 145 mmol/L (136-145) 04/23/19 04:10 Corrected Sodium TNP 04/23/19 04:10 Potassium 3.6 mmol/L (3.5-5.1) 04/23/19 04:10 Chloride 116 mmol/L (98-107) H* 04/23/19 04:10 Carbon Dioxide 19.6 mmol/L (21-32) L 04/23/19 04:10 BUN 22 mg/dL (7-18) H 04/23/19 04:10 Creatinine 1.22 mg/dL (0.55-1.02) H 04/23/19 04:10 Est GFR (MDRD) Af Amer 55 (>60) L 04/23/19 04:10 Est GFR (MDRD) Non-Af 46 (>60) L 04/23/19 04:10 Glucose 84 mg/dL (65-99) 04/23/19 04:10 Uric Acid 10.6 mg/dL (2.6-6.0) H 04/22/19 04:07 Calcium 7.5 mg/dL (8.5-10.1) L 04/23/19 04:10 Corrected Calcium 8.9 mg/dL (8.5-10.1) 04/23/19 04:10 Magnesium 2.0 mg/dL (1.7-2.9) 04/22/19 04:07 Total Bilirubin 0.30 mg/dL (0.2-1.0) 04/23/19 04:10 AST 30 Units/L (15-37) 04/23/19 04:10 ALT 17 Units/L (12-78) 04/23/19 04:10 Alkaline Phosphatase 55 Units/L (46-116) 04/23/19 04:10 Total Protein 5.1 g/dL (6.4-8.2) L 04/23/19 04:10 Albumin 2.2 g/dL (3.4-5.0) L 04/23/19 04:10 Globulin 2.9 g/dL (2.5-4.5) 04/23/19 04:10 Albumin/Globulin Ratio 0.8 Ratio (1.1-2.1) L 04/23/19 04:10 Specimen Type Clean catch urine 04/21/19 23:25 Urine Color Yellow (YELLOW) 04/21/19 23:25 Urine Appearance Clear (CLEAR) 04/21/19 23:25 Urine pH 6.0 (5.0 - 8.0) 04/21/19 23:25 Ur Specific [place] 1.010 (1.000-1.030) 04/21/19 23:25 Urine Protein Negative (NEGATIVE) 04/21/19 23:25 Urine Glucose (UA) Negative (NEGATIVE) 04/21/19 23:25 Urine Ketones Negative (NEGATIVE) 04/21/19 23:25 Urine Occult Blood 1+ (NEGATIVE) 04/21/19 23:25 Urine Nitrite Negative (NEGATIVE) 04/21/19 23:25 Urine Bilirubin Negative (NEGATIVE) 04/21/19 23:25 Urine Urobilinogen Normal (NORMAL) 04/21/19 23:25 Ur Leukocyte Esterase 1+ (NEGATIVE) 04/21/19 23:25 Urine RBC None seen /HPF (0-3) 04/21/19 23:25 Urine WBC 0-2 /HPF (0-5) 04/21/19 23:25 Ur Squamous Epith Cells Rare /HPF (NEGATIVE) 04/21/19 23:25 Urine Bacteria Negative /HPF (NEGATIVE) 04/21/19 23:25 Ur Culture Indicated? Yes/culture set up 04/21/19 23:25 Blood Type O POSITIVE 04/21/19 14:11 Antibody Screen Negative 04/21/19 14:11 Crossmatch See Detail 04/21/19 14:11 - Plan (1) Urinary tract infection Status: Acute (2) Renal failure (ARF), acute on chronic Status: Acute (3) Dehydration Status: Acute (4) Anemia Status: Acute Qualifiers: (5) Gout flare Status: Acute
[2019-04-24] MEDS: NS 1000 ML 1,000 ML IV SCH ×2 (05:03→13:54)
[2019-04-24 05:18] LABS: BASOPHILS % (AUTO) 0.5 % (0.2-1.0); EOSINOPHILS # (AUTO) 0.1 x10^3/uL (0.0-0.2); EOSINOPHILS % (AUTO) 2.1 % (0.9-2.9); HEMATOCRIT 29.9 % (36.0-47.0); HEMOGLOBIN 10.3 g/dL (12.0-16.0); LYMPHOCYTES # (AUTO) 0.6 X10^3/uL (1.3-2.9); LYMPHOCYTES % (AUTO) 18.9 % (21.0-51.0); MEAN CORPUSCULAR HEMOGLOBIN 32.4 pg (27.0-34.0); MEAN CORPUSCULAR HGB CONC 34.6 g/dL (33.0-35.0); MEAN CORPUSCULAR VOLUME 93.7 fL (80.0-100.0); MEAN PLATELET VOLUME 9.1 fL (7.4-11.0); MONOCYTES # (AUTO) 0.3 x10^3/uL (0.3-0.8); MONOCYTES % (AUTO) 10.5 % (0.0-13.0); NEUTROPHILS # (AUTO) 2.2 x10^3/uL (2.2-4.8); PLATELET COUNT 102 X10^3/uL (150.0-450.0); RED BLOOD COUNT 3.19 X10^6/uL (3.5-5.4); RED CELL DISTRIBUTION WIDTH 16.5 % (11.6-16.5); WHITE BLOOD COUNT 3.3 X10^3/uL (3.6-10.0)
[2019-04-24 05:36] LABS: ALANINE AMINOTRANSFERASE 16 Units/L (12-78); ALBUMIN 2.2 g/dL (3.4-5.0); ALKALINE PHOSPHATASE 61 Units/L (46-116); ASPARTATE AMINO TRANSFERASE 35 Units/L (15-37); BLOOD UREA NITROGEN 17 mg/dL (7-18); CALCIUM 7.5 mg/dL (8.5-10.1); CARBON DIOXIDE 18.9 mmol/L (21-32); COR CA(FOR HYPOALB) 8.9 mg/dL (8.5-10.1); CREATININE 1.09 mg/dL (0.55-1.02); SODIUM 144 mmol/L (136-145); TOTAL PROTEIN 5.2 g/dL (6.4-8.2); eGFR NON BLACK RACES 52 (>60)
[2019-04-24 05:48] LABS: CHLORIDE 114 mmol/L (98-107)
[2019-04-24] MEDS: K-DUR TAB 20 MEQ PO PRN (06:51)
[2019-04-24] MEDS: PEPCID TAB 20 MG PO SCH (08:12)
[2019-04-24] MEDS: APRESOLINE TAB 25 MG PO SCH ×2 (08:12→21:40)
[2019-04-24] MEDS: ZANTAC PO SCH (08:12)
[2019-04-24] MEDS: PROTONIX TAB 40 MG PO SCH ×2 (08:13→21:36)
[2019-04-24] MEDS: HEMOCYTE-PLUS PO SCH (08:13)
[2019-04-24] MEDS: ZyrTEC TAB 10 MG PO SCH (08:13)
[2019-04-24] MEDS: REQUIP PO SCH ×2 (08:13→21:37)
[2019-04-24] MEDS ORDERED: ZOFRAN TAB 4 MG PO PRN (08:28)
[2019-04-24] MEDS ORDERED: ZOFRAN TAB 4 MG ONE (08:31)
[2019-04-24] MEDS ORDERED: AFLURIA II4 or FLUARIX II4 IM ONE (09:31)
--- NOTE | 2019-04-24 10:30 | PCM.PROG ---
Progress Note - Progress Note for Day of Date of Exam: 04/23/19 - Subjective Subjective: WAS ADMITTED FOR DEHYDRATION, RENAL FAILURE, ANEMIA, UTI, AND A GOUT FLARE. TODAY, SHE IS ALERT AND ORIENTED, LYING IN BED ON MORNING ROUNDS. SHE CONTINUES TO REPORT GENERALIZED WEAKNESS AND GENERALIZED PAIN. ON EXAMINATION, HEART IS REGULAR IN RATE AND RHYTHM. BILATERAL LUNGS ARE NOTED WITH DIMINISHED LUNG SOUNDS THROUGHOUT. ABDOMEN IS ROUND, SOFT, AND NOTED WITH SUPRAPUBIC TENDERNESS. HER VITALS THIS MORNING ARE: 98.4-76-18-98%-119/59. LABS WERE OBTAINED. ABNORMAL LAB VALUES INCLUDE THE FOLLOWING: WBC 2.4, RBC 1.97, HGB 6.7, HCT 19.8, PLT COUNT 116, CHLORIDE 116, CARBON DIOXIDE 19.6, BUN 22, CREATININE 1.22, CALCIUM 7.6, TOTAL PROTEIN 5.1, ALBUMIN 2.2. A URINE CULTURE IS PENDING. SHE IS CURRENTLY RECEIVING ROCEPHIN 1G IV DAILY AND NORMAL SALINE AT 50ML/HR, POTASSIUM PROTOCOL, AND HOME MEDICATIONS WERE RESUMED. WE WILL CONTINUE WITH CURRENT PLAN OF CARE TODAY AND TRANSFUSE 2 UNITS OF PRBC. OTHERWISE, WE PLAN TO FOLLOW UP WITH AM LABS AND CONTINUE TO MONITOR. - Past Medical Family Social History Past Med/Fam/Surg Hx: No changes since H&P Allergies: Allergies Sulfa (Sulfonamide Antibiotics) [SULFA] Allergy (Verified 08/10/17 16:56) - Review of Systems ROS: No change since H&P - Vital Signs and I&O's Vital Signs: Temperature 97.6 F Pulse Rate [Right Brachial] 78 Respiratory Rate 18 Blood Pressure [Right Arm] 107/51 Blood Pressure [Left Arm] 121/74 Blood Pressure 160/76 O2 Sat by Pulse Oximetry 96 Intake and Output: Intake & Output 04/21/19 04/22/19 04/23/19 04/24/19 11:59 11:59 11:59 11:59 Intake Total 2070 / 2070 2180 / 2180 2525 / 2525 Output Total 600 / 600 Balance 1470 / 1470 2180 / 2180 2525 / 2525 - Physical Exam Oriented: Normal Eyes: Normal Ear: Normal Nose: Normal Throat: Normal Respiratory: Generalized, Diminished Cardiovascular: Normal : Normal Auscultation: Bowel Sounds: Normal Palpation: Normal Tenderness: Suprapubic, Mild. negative: Rebound, Guarding, Rigidity Skin: Decreased Turgur Musculoskeletal: Normal Psychiatric: Normal Mood Description: Calm Affect: Normal Speech Pattern: Clear, Appropriate - Laboratory and Diagnostics Result Diagrams: 04/24/19 03:56 04/24/19 03:56 Labs: 04/21/19 23:25 Urine,Clean Catch Urine Culture - Final Laboratory WBC 3.3 X10^3/uL (3.6-10.0) L 04/24/19 03:56 RBC 3.19 X10^6/uL (3.5-5.4) L 04/24/19 03:56 Hgb 10.3 g/dL (12.0-16.0) L 04/24/19 03:56 Hct 29.9 % (36.0-47.0) L 04/24/19 03:56 MCV 93.7 fL (80.0-100.0) 04/24/19 03:56 MCH 32.4 pg (27.0-34.0) 04/24/19 03:56 MCHC 34.6 g/dL (33.0-35.0) 04/24/19 03:56 RDW 16.5 % (11.6-16.5) 04/24/19 03:56 Plt Count 102 X10^3/uL (150.0-450.0) L 04/24/19 03:56 Plt Count Comment Decreased (ADEQUATE) A 04/23/19 04:10 MPV 9.1 fL (7.4-11.0) 04/24/19 03:56 Neut % (Auto) 68.0 % (42.0-75.0) 04/24/19 03:56 Lymph % (Auto) 18.9 % (21.0-51.0) L 04/24/19 03:56 [place] % (Auto) 10.5 % (0.0-13.0) 04/24/19 03:56 Eos % (Auto) 2.1 % (0.9-2.9) 04/24/19 03:56 Baso % (Auto) 0.5 % (0.2-1.0) 04/24/19 03:56 Neut # (Auto) 2.2 x10^3/uL (2.2-4.8) 04/24/19 03:56 Lymph # (Auto) 0.6 X10^3/uL (1.3-2.9) L 04/24/19 03:56 [place] # (Auto) 0.3 x10^3/uL (0.3-0.8) 04/24/19 03:56 Eos # (Auto) 0.1 x10^3/uL (0.0-0.2) 04/24/19 03:56 Baso # (Auto) 0.0 X10^3/uL (0.0-0.1) 04/24/19 03:56 Absolute Nucleated RBC 0.3 /100WBC 04/24/19 03:56 Total Counted 100 04/23/19 04:10 Neutrophils % (Manual) 69 % (39-76) 04/23/19 04:10 Band Neutrophils % 4 % (0-10) 04/23/19 04:10 Lymphocytes % (Manual) 17 % (13-43) 04/23/19 04:10 Monocytes % (Manual) 10 % (4-9) H 04/23/19 04:10 Eosinophils % (Manual) 3 % (0-6) 04/22/19 04:07 Plt Morphology Comment Normal (NORMAL) 04/23/19 04:10 RBC Morphology Abnormal (NORMAL) A 04/23/19 04:10 Hypochromasia 1+ A 04/23/19 04:10 Sodium 144 mmol/L (136-145) 04/24/19 03:56 Corrected Sodium TNP 04/24/19 03:56 Potassium 3.5 mmol/L (3.5-5.1) 04/24/19 03:56 Chloride 114 mmol/L (98-107) H 04/24/19 03:56 Carbon Dioxide 18.9 mmol/L (21-32) L 04/24/19 03:56 BUN 17 mg/dL (7-18) 04/24/19 03:56 Creatinine 1.09 mg/dL (0.55-1.02) H 04/24/19 03:56 Est GFR (MDRD) Af Amer > 60 (>60) 04/24/19 03:56 Est GFR (MDRD) Non-Af 52 (>60) L 04/24/19 03:56 Glucose 73 mg/dL (65-99) 04/24/19 03:56 Uric Acid 10.6 mg/dL (2.6-6.0) H 04/22/19 04:07 Calcium 7.5 mg/dL (8.5-10.1) L 04/24/19 03:56 Corrected Calcium 8.9 mg/dL (8.5-10.1) 04/24/19 03:56 Magnesium 2.0 mg/dL (1.7-2.9) 04/22/19 04:07 Total Bilirubin 0.50 mg/dL (0.2-1.0) 04/24/19 03:56 AST 35 Units/L (15-37) 04/24/19 03:56 ALT 16 Units/L (12-78) 04/24/19 03:56 Alkaline Phosphatase 61 Units/L (46-116) 04/24/19 03:56 Total Protein 5.2 g/dL (6.4-8.2) L 04/24/19 03:56 Albumin 2.2 g/dL (3.4-5.0) L 04/24/19 03:56 Globulin 3.0 g/dL (2.5-4.5) 04/24/19 03:56 Albumin/Globulin Ratio 0.7 Ratio (1.1-2.1) L 04/24/19 03:56 Specimen Type Clean catch urine 04/21/19 23:25 Urine Color Yellow (YELLOW) 04/21/19 23:25 Urine Appearance Clear (CLEAR) 04/21/19 23:25 Urine pH 6.0 (5.0 - 8.0) 04/21/19 23:25 Ur Specific [place] 1.010 (1.000-1.030) 04/21/19 23:25 Urine Protein Negative (NEGATIVE) 04/21/19 23:25 Urine Glucose (UA) Negative (NEGATIVE) 04/21/19 23:25 Urine Ketones Negative (NEGATIVE) 04/21/19 23:25 Urine Occult Blood 1+ (NEGATIVE) 04/21/19 23:25 Urine Nitrite Negative (NEGATIVE) 04/21/19 23:25 Urine Bilirubin Negative (NEGATIVE) 04/21/19 23:25 Urine Urobilinogen Normal (NORMAL) 04/21/19 23:25 Ur Leukocyte Esterase 1+ (NEGATIVE) 04/21/19 23:25 Urine RBC None seen /HPF (0-3) 04/21/19 23:25 Urine WBC 0-2 /HPF (0-5) 04/21/19 23:25 Ur Squamous Epith Cells Rare /HPF (NEGATIVE) 04/21/19 23:25 Urine Bacteria Negative /HPF (NEGATIVE) 04/21/19 23:25 Ur Culture Indicated? Yes/culture set up 04/21/19 23:25 Blood Type O POSITIVE 04/21/19 14:11 Antibody Screen Negative 04/21/19 14:11 Crossmatch See Detail 04/21/19 14:11 - Plan (1) Urinary tract infection Status: Acute Plan: ROCEPHIN 1G IV DAILY, CONTINUE TO MONITOR (2) Renal failure (ARF), acute on chronic Status: Acute Qualifiers: Acute renal failure type: unspecified Chronic kidney disease stage: unspecified stage Qualified Code(s): N17.9 - Acute kidney failure, unspecified; N18.9 - Chronic kidney disease, unspecified Plan: IV FLUIDS, CONTINUE TO MONITOR (3) Dehydration Status: Acute Plan: IV FLUIDS, CONTINUE TO MONITOR (4) Anemia Status: Acute Qualifiers: Anemia type: iron deficiency Iron deficiency anemia type: chronic blood loss Qualified Code(s): D50.0 - Iron deficiency anemia secondary to blood loss (chronic) Plan: TRANSFUSE 2 UNITS PRBC, CONTINUE TO MONITOR (5) Gout flare Status: Acute Qualifiers: Gout site: multiple sites Gout etiology: unspecified cause Qualified Code(s): M10.9 - Gout, unspecified Plan: CONTINUE HOME MEDS, CONTINUE TO MONITOR
[2019-04-24] MEDS: ROCEPHIN VIAL 1 GRAM 1 G in NS 100 ML IV + SPIKE MINIBAG* 100 ML IV SCH (11:00)
[2019-04-24] MEDS: SYNTHROID 50 mcg TAB PO SCH (16:50)
--- NOTE | 2019-04-24 19:52 | PCM.PROG ---
Progress Note - Progress Note for Day of Date of Exam: 04/24/19 - Subjective Subjective: WAS ADMITTED FFOR DEHYDRATION, RENAL FAILURE, ANEMIA, UTI, AND A GOUT FLARE. TODAY, SHE IS ALERT AND ORIENTED, LYING IN BED ON MORNING ROUNDS, SHE REPORTS GENERALIZED WEAKNESS AND GENERALIZED PAIN. ON EXAMINATION, HEART IS REGULAR IN RATE AND RHYTHM. BILATERAL LUNGS ARE NOTED WITH DIMINISHED LUNG SOUNDS THROUGHOUT. ABDOMEN IS ROUND, SOFT, AND NOTED WITH SUPRAPUBIC TENDERNESS. HER VITALS THIS MORNING ARE: 97.6-78-18-96%-107/51. LABS WERE OBTAINED. ABNORMAL LAB VALUES INCLUDE THE FOLLOWING: RBC 3.3, RBC 3.19, HGB 10.3, HCT 29.9, PLT COUNT 102, CHLORIDE 114, CARBON DIOXIDE 18.9, CREATININE 1.09, CALCIUM 7.5, TOTAL PROTEIN 5.2, ALUBMIN 2.2. SHE IS CURRENTLY RECEIVING ROCEPHIN 1G IV DAILY, NORMAL SALINE AT 50ML/HR, THE POTASSIUM PROTOCOL, AND HOME MEDICATIONS WERE RESUMED. WE WILL CONTINUE WITH CURRENT PLAN OF CARE TODAY. OTHERWISE, WE PLAN TO FOLLOW UP WITH AM LABS AND CONTINUE TO MONITOR. - Past Medical Family Social History Past Med/Fam/Surg Hx: No changes since H&P Allergies: Allergies Sulfa (Sulfonamide Antibiotics) [SULFA] Allergy (Verified 08/10/17 16:56) - Review of Systems ROS: No change since H&P - Vital Signs and I&O's Vital Signs: Temperature 98.4 F Pulse Rate [Right Brachial] 73 Respiratory Rate 18 Blood Pressure [Right Arm] 130/63 Blood Pressure [Left Arm] 121/74 Blood Pressure 160/76 O2 Sat by Pulse Oximetry 97 Intake and Output: Intake & Output 04/22/19 04/23/19 04/24/19 04/25/19 11:59 11:59 11:59 11:59 Intake Total 0 / 0 2180 / 2180 2525 / 2525 880 / 880 Output Total 600 / 600 Balance 1470 / 1470 2180 / 2180 2525 / 2525 880 / 880 - Physical Exam Oriented: Normal Eyes: Normal Ear: Normal Nose: Normal Throat: Normal Respiratory: Generalized, Diminished Cardiovascular: Normal : Normal Auscultation: Bowel Sounds: Normal Palpation: Normal Tenderness: Suprapubic, Mild. negative: Rebound, Guarding, Rigidity Skin: Decreased Turgur Musculoskeletal: Normal Psychiatric: Normal Mood Description: Calm Affect: Normal Speech Pattern: Clear, Appropriate - Laboratory and Diagnostics Result Diagrams: 04/24/19 03:56 04/24/19 03:56 Labs: 04/21/19 23:25 Urine,Clean Catch Urine Culture - Final Laboratory WBC 3.3 X10^3/uL (3.6-10.0) L 04/24/19 03:56 RBC 3.19 X10^6/uL (3.5-5.4) L 04/24/19 03:56 Hgb 10.3 g/dL (12.0-16.0) L 04/24/19 03:56 Hct 29.9 % (36.0-47.0) L 04/24/19 03:56 MCV 93.7 fL (80.0-100.0) 04/24/19 03:56 MCH 32.4 pg (27.0-34.0) 04/24/19 03:56 MCHC 34.6 g/dL (33.0-35.0) 04/24/19 03:56 RDW 16.5 % (11.6-16.5) 04/24/19 03:56 Plt Count 102 X10^3/uL (150.0-450.0) L 04/24/19 03:56 Plt Count Comment Decreased (ADEQUATE) A 04/23/19 04:10 MPV 9.1 fL (7.4-11.0) 04/24/19 03:56 Neut % (Auto) 68.0 % (42.0-75.0) 04/24/19 03:56 Lymph % (Auto) 18.9 % (21.0-51.0) L 04/24/19 03:56 [place] % (Auto) 10.5 % (0.0-13.0) 04/24/19 03:56 Eos % (Auto) 2.1 % (0.9-2.9) 04/24/19 03:56 Baso % (Auto) 0.5 % (0.2-1.0) 04/24/19 03:56 Neut # (Auto) 2.2 x10^3/uL (2.2-4.8) 04/24/19 03:56 Lymph # (Auto) 0.6 X10^3/uL (1.3-2.9) L 04/24/19 03:56 [place] # (Auto) 0.3 x10^3/uL (0.3-0.8) 04/24/19 03:56 Eos # (Auto) 0.1 x10^3/uL (0.0-0.2) 04/24/19 03:56 Baso # (Auto) 0.0 X10^3/uL (0.0-0.1) 04/24/19 03:56 Absolute Nucleated RBC 0.3 /100WBC 04/24/19 03:56 Total Counted 100 04/23/19 04:10 Neutrophils % (Manual) 69 % (39-76) 04/23/19 04:10 Band Neutrophils % 4 % (0-10) 04/23/19 04:10 Lymphocytes % (Manual) 17 % (13-43) 04/23/19 04:10 Monocytes % (Manual) 10 % (4-9) H 04/23/19 04:10 Eosinophils % (Manual) 3 % (0-6) 04/22/19 04:07 Plt Morphology Comment Normal (NORMAL) 04/23/19 04:10 RBC Morphology Abnormal (NORMAL) A 04/23/19 04:10 Hypochromasia 1+ A 04/23/19 04:10 Sodium 144 mmol/L (136-145) 04/24/19 03:56 Corrected Sodium TNP 04/24/19 03:56 Potassium 3.5 mmol/L (3.5-5.1) 04/24/19 03:56 Chloride 114 mmol/L (98-107) H 04/24/19 03:56 Carbon Dioxide 18.9 mmol/L (21-32) L 04/24/19 03:56 BUN 17 mg/dL (7-18) 04/24/19 03:56 Creatinine 1.09 mg/dL (0.55-1.02) H 04/24/19 03:56 Est GFR (MDRD) Af Amer > 60 (>60) 04/24/19 03:56 Est GFR (MDRD) Non-Af 52 (>60) L 04/24/19 03:56 Glucose 73 mg/dL (65-99) 04/24/19 03:56 Uric Acid 10.6 mg/dL (2.6-6.0) H 04/22/19 04:07 Calcium 7.5 mg/dL (8.5-10.1) L 04/24/19 03:56 Corrected Calcium 8.9 mg/dL (8.5-10.1) 04/24/19 03:56 Magnesium 2.0 mg/dL (1.7-2.9) 04/22/19 04:07 Total Bilirubin 0.50 mg/dL (0.2-1.0) 04/24/19 03:56 AST 35 Units/L (15-37) 04/24/19 03:56 ALT 16 Units/L (12-78) 04/24/19 03:56 Alkaline Phosphatase 61 Units/L (46-116) 04/24/19 03:56 Total Protein 5.2 g/dL (6.4-8.2) L 04/24/19 03:56 Albumin 2.2 g/dL (3.4-5.0) L 04/24/19 03:56 Globulin 3.0 g/dL (2.5-4.5) 04/24/19 03:56 Albumin/Globulin Ratio 0.7 Ratio (1.1-2.1) L 04/24/19 03:56 Specimen Type Clean catch urine 04/21/19 23:25 Urine Color Yellow (YELLOW) 04/21/19 23:25 Urine Appearance Clear (CLEAR) 04/21/19 23:25 Urine pH 6.0 (5.0 - 8.0) 04/21/19 23:25 Ur Specific [place] 1.010 (1.000-1.030) 04/21/19 23:25 Urine Protein Negative (NEGATIVE) 04/21/19 23:25 Urine Glucose (UA) Negative (NEGATIVE) 04/21/19 23:25 Urine Ketones Negative (NEGATIVE) 04/21/19 23:25 Urine Occult Blood 1+ (NEGATIVE) 04/21/19 23:25 Urine Nitrite Negative (NEGATIVE) 04/21/19 23:25 Urine Bilirubin Negative (NEGATIVE) 04/21/19 23:25 Urine Urobilinogen Normal (NORMAL) 04/21/19 23:25 Ur Leukocyte Esterase 1+ (NEGATIVE) 04/21/19 23:25 Urine RBC None seen /HPF (0-3) 04/21/19 23:25 Urine WBC 0-2 /HPF (0-5) 04/21/19 23:25 Ur Squamous Epith Cells Rare /HPF (NEGATIVE) 04/21/19 23:25 Urine Bacteria Negative /HPF (NEGATIVE) 04/21/19 23:25 Ur Culture Indicated? Yes/culture set up 04/21/19 23:25 Blood Type O POSITIVE 04/21/19 14:11 Antibody Screen Negative 04/21/19 14:11 Crossmatch See Detail 04/21/19 14:11 - Plan (1) Urinary tract infection Status: Acute Qualifiers: Urinary tract infection type: acute cystitis Hematuria presence: without hematuria Qualified Code(s): N30.00 - Acute cystitis without hematuria Plan: ROCEPHIN 1G IV DAILY, CONTINUE TO MONITOR (2) Renal failure (ARF), acute on chronic Status: Acute Qualifiers: Acute renal failure type: unspecified Chronic kidney disease stage: unspecified stage Qualified Code(s): N17.9 - Acute kidney failure, unspecified; N18.9 - Chronic kidney disease, unspecified Plan: IV FLUIDS, CONTINUE TO MONITOR (3) Dehydration Status: Acute Plan: IV FLUIDS, CONTINUE TO MONITOR (4) Anemia Status: Acute Qualifiers: Anemia type: iron deficiency Iron deficiency anemia type: chronic blood loss Qualified Code(s): D50.0 - Iron deficiency anemia secondary to blood loss (chronic) Plan: CONTINUE TO MONITOR (5) Gout flare Status: Acute Qualifiers: Gout site: multiple sites Gout etiology: unspecified cause Qualified Code(s): M10.9 - Gout, unspecified Plan: CONTINUE HOME MEDS, CONTINUE TO MONITOR
[2019-04-24] MEDS: COLACE CAP 100 MG PO SCH (21:37)
[2019-04-24] MEDS: ZOCOR TAB 20 MG PO SCH (21:37)
[2019-04-24] MEDS: TRICOR TAB 160 MG PO SCH (21:37)
[2019-04-24] MEDS: SINGULAIR TAB 10 MG PO SCH (21:38)
[2019-04-25 04:23] LABS: BASOPHILS % (AUTO) 0.7 % (0.2-1.0); EOSINOPHILS # (AUTO) 0.1 x10^3/uL (0.0-0.2); EOSINOPHILS % (AUTO) 2.6 % (0.9-2.9); HEMOGLOBIN 10.3 g/dL (12.0-16.0); LYMPHOCYTES # (AUTO) 0.5 X10^3/uL (1.3-2.9); LYMPHOCYTES % (AUTO) 15.9 % (21.0-51.0); MEAN CORPUSCULAR HEMOGLOBIN 32.1 pg (27.0-34.0); MEAN CORPUSCULAR HGB CONC 34.3 g/dL (33.0-35.0); MEAN CORPUSCULAR VOLUME 93.6 fL (80.0-100.0); MEAN PLATELET VOLUME 7.8 fL (7.4-11.0); MONOCYTES # (AUTO) 0.3 x10^3/uL (0.3-0.8); MONOCYTES % (AUTO) 10.9 % (0.0-13.0); NEUTROPHILS # (AUTO) 2.2 x10^3/uL (2.2-4.8); NEUTROPHILS % (AUTO) 69.9 % (42.0-75.0); PLATELET COUNT 104 X10^3/uL (150.0-450.0); RED BLOOD COUNT 3.21 X10^6/uL (3.5-5.4); RED CELL DISTRIBUTION WIDTH 16.3 % (11.6-16.5); WHITE BLOOD COUNT 3.2 X10^3/uL (3.6-10.0)
[2019-04-25 04:33] LABS: ALANINE AMINOTRANSFERASE 15 Units/L (12-78); ALBUMIN 2.2 g/dL (3.4-5.0); ALKALINE PHOSPHATASE 63 Units/L (46-116); ASPARTATE AMINO TRANSFERASE 36 Units/L (15-37); BLOOD UREA NITROGEN 14 mg/dL (7-18); CALCIUM 7.8 mg/dL (8.5-10.1); CARBON DIOXIDE 20.1 mmol/L (21-32); CHLORIDE 114 mmol/L (98-107); COR CA(FOR HYPOALB) 9.2 mg/dL (8.5-10.1); CREATININE 1.11 mg/dL (0.55-1.02); SODIUM 144 mmol/L (136-145); TOTAL PROTEIN 5.2 g/dL (6.4-8.2); eGFR NON BLACK RACES 51 (>60)
[2019-04-25] MEDS: K-DUR TAB 20 MEQ PO PRN (05:46)
[2019-04-25] MEDS: NS 1000 ML 1,000 ML IV SCH (07:35)
[2019-04-25] MEDS: ROCEPHIN VIAL 1 GRAM 1 G in NS 100 ML IV + SPIKE MINIBAG* 100 ML IV SCH (09:30)
[2019-04-25] MEDS: HEMOCYTE-PLUS PO SCH (09:31)
[2019-04-25] MEDS: APRESOLINE TAB 25 MG PO SCH (09:31)
[2019-04-25] MEDS: REQUIP PO SCH (09:31)
[2019-04-25] MEDS: PEPCID TAB 20 MG PO SCH (09:31)
[2019-04-25] MEDS: ZyrTEC TAB 10 MG PO SCH (09:31)
[2019-04-25] MEDS: PROTONIX TAB 40 MG PO SCH (09:31)
[2019-04-25] MEDS: ZANTAC PO SCH (09:31)
[2019-04-25 10:05] VITALS: BP 156/72
== END 2019-04-25 12:25 | disposition home or self-care (01) | DRG 690 ==
LOC: MED/SURG
PROVIDERS: ADMIT Internal Medicine; ATTEND Internal Medicine
CPT/HCPCS: 36415; 36430; 71010; 71045; 80053; 81001; 83735; 84550; 85014; 85018; 85025; 86850; 86900; 86901; 86922; 87086; 90674; 90686; 97162; A4216; A4222; P9016; G0378; J0696; J2405; J7030; J7040; J7050; S0119; S0181

== ENCOUNTER 2024-12-29 14:02 | Inpatient (IN) ==
--- NOTE | 2024-12-29 16:44 | DR.GENAD ---
HPI Time Seen Time Seen by Provider: 12/29/24 16:43 PCP Primary Care Physician: Ephraim Butts Complaint/Symptoms Chief Complaint Doctors Comments: Patient stated that she has itching in her legs bilaterally been going on for months and she is supposed to see a vascular doctor some doctor to further evaluated she has not been able to get to see them she states that her son is now out of town in [place] and she has not been able to go to any of the appointments. Chief Complaint:: Patient states that she has been having itching, sores on her extremities that are not healing, diarrhea, nausea and dizziness since Wednesday. Friend states that her son is on vacation so she brought her up here. Self Treatment fo Chief Complaint: Patient states that she taken tylenol to help with her pain but it has not helped. COVID-19 Coronavirus risk:travel/contact w/high risk person: No Has patient experienced Coronavirus symptoms: No Source History Provided: Patient and Friend Mode of Arrival Mode of Arrival: Wheelchair Timing Onset of Chief Complaint: 12/25/24 PMH PMH Past Medical History: Yes Past Medical History: Hypertension, Hypothyroidism and [place] Past Surgical History: Yes Surgical History: CABG/Valve Surgery, Cholecystectomy and Other Family History History of Family Medical Conditions: Yes Family Medical History: Diabetes Mellitus, Cancer, Coronary Artery Disease, Heart Failure and Hypertension Social History Does patient currently use any type of tobacco product: No Have you used tobacco products in the last 12 months: No Type of Tobacco Use: None Does any household member use tobacco: No Alcohol Use: None Do you use any recreational Drugs:: No Lives With: Family Lives Where: Home Travel Risk Coronavirus risk:travel/contact w/high risk person: No Has patient experienced Coronavirus symptoms: No Infectious screening In the last 2 months have you had wt loss of >10#?: NO Have you had fever, night sweats or hemotysis?: No Have you traveled outside the country in the last 6 months?: No Isolation: Standard ROS Review of Systems Constitutional: Other (itching in bilateral legs for months, diarrhea with nausea for 5 days,has chronic kidney disease) Eyes: No Symptoms Reported ENTM: No Symptoms Reported Respiratoy: No Symptoms Reported Cardiovascular: No Symptoms Reported Gastrointestinal/Abdominal: Diarrhea and Nausea Genitourinary: No Symptoms Reported Neurological: No Symptoms Reported Musculoskeletal: No Symptoms Reported Integumentary: Itching Hematologic/Lymphatic: No Symptoms Reported Endocrine: No Symptoms Reported Psychiatric: No Symptoms Reported PE Vital Signs Vitals: Vital Signs Pulse Rate 74 Pulse Rate 74 Pulse Rate 75 Pulse Rate 75 Pulse Rate 75 Pulse Rate 75 Pulse Rate 76 Pulse Rate 80 Pulse Rate 81 Pulse Rate 77 Pulse Rate 77 Pulse Rate 77 Pulse Rate 78 Pulse Rate 80 Pulse Rate 80 Pulse Rate 79 Pulse Rate 79 Pulse Rate 79 Pulse Rate 79 Pulse Rate 78 Pulse Rate 78 Pulse Rate 72 Pulse Rate 73 Pulse Rate 74 Pulse Rate 75 Pulse Rate 77 Pulse Rate 80 Pulse Rate 79 Pulse Rate 82 Pulse Rate 77 Pulse Rate 76 Pulse Rate 81 Pulse Rate 75 Pulse Rate 75 Pulse Rate 73 Respiratory Rate 31 Respiratory Rate 31 Respiratory Rate 20 Respiratory Rate 19 Respiratory Rate 29 Respiratory Rate 24 Respiratory Rate 16 Respiratory Rate 15 Respiratory Rate 34 Respiratory Rate 34 Respiratory Rate 31 Respiratory Rate 21 Respiratory Rate 20 Respiratory Rate 20 Respiratory Rate 20 Respiratory Rate 20 Respiratory Rate 25 Respiratory Rate 24 Respiratory Rate 32 Respiratory Rate 28 Respiratory Rate 37 Respiratory Rate 38 Respiratory Rate 29 Respiratory Rate 18 Respiratory Rate 43 Respiratory Rate 44 Respiratory Rate 31 Respiratory Rate 27 Respiratory Rate 21 Respiratory Rate 51 Respiratory Rate 38 Respiratory Rate 39 Respiratory Rate 43 Respiratory Rate 41 Blood Pressure 115/56 Blood Pressure 115/56 Blood Pressure 95/54 Blood Pressure 95/54 Blood Pressure 96/52 Blood Pressure 126/61 Blood Pressure 110/57 Blood Pressure 110/57 Blood Pressure 109/53 Blood Pressure 106/51 Blood Pressure 103/51 Blood Pressure 97/51 Blood Pressure 116/58 Blood Pressure 101/52 Blood Pressure 123/58 Blood Pressure 109/57 Blood Pressure 106/57 O2 Sat by Pulse Oximetry 100 O2 Sat by Pulse Oximetry 100 O2 Sat by Pulse Oximetry 100 O2 Sat by Pulse Oximetry 99 O2 Sat by Pulse Oximetry 99 O2 Sat by Pulse Oximetry 100 O2 Sat by Pulse Oximetry 100 O2 Sat by Pulse Oximetry 100 O2 Sat by Pulse Oximetry 100 O2 Sat by Pulse Oximetry 100 O2 Sat by Pulse Oximetry 98 O2 Sat by Pulse Oximetry 99 O2 Sat by Pulse Oximetry 96 O2 Sat by Pulse Oximetry 96 O2 Sat by Pulse Oximetry 99 O2 Sat by Pulse Oximetry 98 O2 Sat by Pulse Oximetry 98 O2 Sat by Pulse Oximetry 98 O2 Sat by Pulse Oximetry 99 O2 Sat by Pulse Oximetry 100 O2 Sat by Pulse Oximetry 99 O2 Sat by Pulse Oximetry 100 O2 Sat by Pulse Oximetry 100 O2 Sat by Pulse Oximetry 99 O2 Sat by Pulse Oximetry 99 O2 Sat by Pulse Oximetry 100 General Limitations: No Limitations General Appearance: Alert and In Distress (mild distress) Head Head Exam: Normal Inspection and Atraumatic Eyes Eye exam: Normal Appearance, PERRL and EOMI Neck Neck Exam: Normal Inspection Chest Chest Inspection: Normal Inspection and Symmetric Chest Wall Rise Respiratory Respiratory Exam: Normal Lung Sounds Bilat Respiratory Exam: Bilateral: Clear to Auscultation Cardiovascular Cardiovascular Exam: Regular Rate and Normal Rhythm Abdominal Exam Abdominal Exam: Normal Inspection Extremities Extremities Exam: Other (erythema of lower extremities) Back Back Exam: Normal Inspection Neurologic Neurological Exam: Alert Psychiatric Psychiatric Exam: Normal Affect Skin Skin Exam: Warm, Dry, Intact and Erythema (in patches on lower extremities) MDM Differential Diagnosis Differential Diagnosis: enteritis,pad,chronic kidney disease,vertigo COURSE Treatment Treatment: Christina remains well for stable during ER evaluation. Initially she complained of some little bit of dizziness and she states she was itching on her lower extremities she had a little bit of nausea and diarrhea the symptoms been going on for about 5 days. We did workup on the patient she did states she has some chronic kidney disease. Did have elevated BUN and 118 and a creatinine of 2.88 on complete metabolic panel and her GFR was 17. We did amylase was normal at 102 the lipase is elevated at 292 total bili was 2.8 this patient was given a liter bolus of fluids for the most probable dehydration and she does not have obvious kidney disease but will need to be followed up with a lye peel operator. We did do a CT scan of her abdomen and pelvis because she seemed to be a little bit of jaundice and the radiologist read it as normal CT of abdomen pelvis. I spoke to the patient's son who is currently in [place] and told him what the plan was for his mother and he is aware that we are going to refer to observation for treatment for dehydration and a urinary tract infection and he is aware that she does have some renal insufficiency also. The patient was told of the intent to put up to observation and she was agreeable to the observation. I spoke to Dr. Reid the physician on-call and she stated the patient could be admitted for dehydration and urinary tract infection. She is aware of the patient's renal insufficiency and some elevation of her liver enzymes. [facility] Labs Reviewed Laboratory Results Reviewed?: Yes 12/29/24 17:35 12/29/24 17:35 Laboratory: WBC 10.0 X10^3/uL (3.6-10.0) 12/29/24 17:35 RBC 3.09 X10^6/uL (3.5-5.4) L 12/29/24 17:35 Hgb 9.9 g/dL (12.0-16.0) L 12/29/24 17:35 Hct 29.0 % (36.0-47.0) L 12/29/24 17:35 MCV 94.0 fL (80.0-100.0) 12/29/24 17:35 MCH 32.2 pg (27.0-34.0) 12/29/24 17:35 MCHC 34.2 g/dL (33.0-35.0) 12/29/24 17:35 RDW 14.7 % (11.6-16.5) 12/29/24 17:35 Plt Count 70 X10^3/uL (150.0-450.0) L 12/29/24 17:35 MPV 10.6 fL (7.4-11.0) 12/29/24 17:35 Neut % (Auto) 81.6 % (42.0-75.0) H 12/29/24 17:35 Lymph % (Auto) 12.1 % (21.0-51.0) L 12/29/24 17:35 [place] % (Auto) 5.1 % (0.0-13.0) 12/29/24 17:35 Eos % (Auto) 0.5 % (0.9-2.9) L 12/29/24 17:35 Baso % (Auto) 0.7 % (0.2-1.0) 12/29/24 17:35 Neut # (Auto) 8.2 x10^3/uL (2.2-4.8) H 12/29/24 17:35 Lymph # (Auto) 1.2 X10^3/uL (1.3-2.9) L 12/29/24 17:35 [place] # (Auto) 0.5 x10^3/uL (0.3-0.8) 12/29/24 17:35 Eos # (Auto) 0.1 x10^3/uL (0.0-0.2) 12/29/24 17:35 Baso # (Auto) 0.1 X10^3/uL (0.0-0.1) 12/29/24 17:35 Absolute Nucleated RBC 0.0 /100WBC 12/29/24 17:35 Sodium 132 mmol/L (136-145) L 12/29/24 17:35 Corrected Sodium TNP 12/29/24 17:35 Potassium 5.1 mmol/L (3.5-5.1) 12/29/24 17:35 Chloride 100 mmol/L (98-107) 12/29/24 17:35 Carbon Dioxide 22.0 mmol/L (21-32) 12/29/24 17:35 BUN 118 mg/dL (7-18) H 12/29/24 17:35 Creatinine 2.88 mg/dL (0.55-1.02) H 12/29/24 17:35 Est GFR (MDRD) Af Amer 20 (>60) L 12/29/24 17:35 Est GFR (MDRD) Non-Af 17 (>60) L 12/29/24 17:35 Glucose 93 mg/dL (65-99) 12/29/24 17:35 Calcium 8.8 mg/dL (8.5-10.1) 12/29/24 17:35 Corrected Calcium 9.5 mg/dL (8.5-10.1) 12/29/24 17:35 Total Bilirubin 2.80 mg/dL (0.2-1.0) H 12/29/24 17:35 AST 113 Units/L (15-37) H 12/29/24 17:35 ALT 57 Units/L (12-78) 12/29/24 17:35 Alkaline Phosphatase 148 Units/L (46-116) H 12/29/24 17:35 Total Protein 7.9 g/dL (6.4-8.2) 12/29/24 17:35 Albumin 3.1 g/dL (3.4-5.0) L 12/29/24 17:35 Globulin 4.8 g/dL (2.5-4.5) H 12/29/24 17:35 Albumin/Globulin Ratio 0.6 Ratio (1.1-2.1) L 12/29/24 17:35 Amylase 102 Units/L (25-115) 12/29/24 17:35 Lipase 292 Units/L (16-77) H 12/29/24 17:35 Specimen Type Clean catch urine 12/29/24 18:30 Urine Color Yellow (YELLOW) 12/29/24 18: Urine Appearance Turbid (CLEAR) 12/29/24 18:30 Urine pH 6.0 (5.0 - 8.0) 12/29/24 18:30 Ur Specific [place] 1.015 (1.000-1.030) 12/29/24 18:30 Urine Protein 1+ (NEGATIVE) 12/29/24 18:30 Urine Glucose (UA) Negative (NEGATIVE) 12/29/24 18:30 Urine Ketones Negative (NEGATIVE) 12/29/24 18: Urine Blood 2+ (NEGATIVE) 12/29/24 18: Urine Nitrite Negative (NEGATIVE) 12/29/24 18: Urine Bilirubin Negative (NEGATIVE) 12/29/24 18:30 Urine Urobilinogen 2+ (NORMAL) 12/29/24 18:30 Ur Leukocyte Esterase 3+ (NEGATIVE) 12/29/24 18:30 Urine RBC 0-2 /HPF (0-3) 12/29/24 18:30 Urine WBC 3-5 /HPF (0-5) 12/29/24 18:30 Ur Squamous Epith Cells Rare /HPF (NEGATIVE) 12/29/24 18:30 Amorphous Sediment Trace /HPF (NEGATIVE) 12/29/24 18:30 Urine Bacteria 4+ /HPF (NEGATIVE) 12/29/24 18:30 Urine Mucus Rare /HPF (NEGATIVE) 12/29/24 18:30 Ur Culture Indicated? Yes/culture set up 12/29/24 18:30 Opioid Opioid Risk Tool Age (Daniel box if 16-45): No History of Preadolescent Sexual Abuse: No Total: 0 Total Score Risk Category: Low Risk Copyright: Bertin CALLE predicting aberrant behaviors Discharge Plan Diagnosis Discharge Problem: Dehydration, UTI (urinary tract infection), Chronic renal insufficiency Discharge Plan Patient Disposition: 09 ADMITTED INPATIENT Condition: Stable Prescriptions: No Action furosemide 40 mg tablet 40 mg PO Q OTHER DAY cetirizine 10 mg tablet 10 mg PO QDAY levetiracetam 500 mg tablet 500 mg PO BID isosorbide mononitrate 30 mg tablet extended release 24 hr 30 mg PO QAM alprazolam 0.25 mg tablet 0.25 mg PO BID PRN (Reason: anxiety) potassium chloride 20 mEq tablet,ER particles/crystals 20 meq PO QDAY levothyroxine 50 mcg tablet 50 mcg PO QAM ropinirole 2 mg tablet 2 mg PO QPM pantoprazole 40 mg tablet,delayed release (DR/EC) 40 mg PO QDAY simvastatin 20 mg tablet 20 mg PO QPM montelukast 10 mg tablet 10 mg PO QDAY furosemide 20 mg tablet 20 mg PO QDAY metoprolol succinate 25 mg tablet extended release 24 hr 25 mg PO QAM fenofibrate 160 mg tablet 160 mg PO QDAY Health Concerns: Post Hospitalization: new medications and changes needed to prevent readmission or further decline. Pt educated and given instructions on all concerns. Plan of Treatment: Continue with present treatment and follow up plan. Pt is to keep follow up appointment as instructed and take medications as ordered. Orders to Discharge Patient Discharge Orders: Transfer (Routine); Ordered 12/30/24 Ordered By: Adrian Phillips Follow ups/Referrals Follow ups/Referrals: ,Misc [Primary Care Provider] - 3 days Instructions Stand Alone Forms: Find Help Web Site, Post Hospital Follow Up Care Print Language: GEORGIAN
[2024-12-29 17:48] LABS: MEAN PLATELET VOLUME 10.6 fL (7.4-11.0); RED CELL DISTRIBUTION WIDTH 14.7 % (11.6-16.5)
[2024-12-29 17:56] LABS: COR CA(FOR HYPOALB) 9.5 mg/dL (8.5-10.1); CREATININE 2.88 mg/dL (0.55-1.02); eGFR NON BLACK RACES 17 (>60)
--- NOTE | 2024-12-29 18:31 | CT ---
EXAM: CT HEAD WITHOUT IV CONTRAST HISTORY: Confusion COMPARISON: None . TECHNIQUE: Axial images were acquired of the head without IV contrast. Coronal and sagittal images were provided. All images were reviewed in a variety of windows and levels. LIMITATIONS: Please note that CT has low sensitivity and accuracy for identifying acute infarction. In addition, there are portions of the brain that are affected by beam hardening artifact which further greatly limits identification of an acute infarct. RADIATION REDUCTION TECHNIQUE: Automated exposure control, Adjustment of the mA and/or kV according to patient size, or iterative reconstruction techniques were used. FINDINGS: There is diffuse cerebral atrophy with a regional distribution of low attenuation along the periventricular white matter most likely representing small vessel ischemic changes which are to a degree that would be considered within normal limits for the patient's stated age. There is no evidence of an acute intracranial bleed. There is no evidence of a mass or midline shift. There is no evidence of an extra-axial fluid collection. The flores-white matter differentiation is within normal limits. The visualized bones are unremarkable. The visualized sinuses are clear. The mastoid air cells are well-aerated. IMPRESSION: 1. INVOLUTIONAL CHANGES ARE PRESENT WITH FINDINGS SUGGESTING SMALL VESSEL ISCHEMIC DISEASE WHICH IS TO A DEGREE THAT WOULD BE CONSIDERED WITHIN NORMAL LIMITS FOR THE PATIENT'S STATED AGE. 2. THERE IS NO EVIDENCE OF ACUTE INTRACRANIAL BLEED. THIS IS AN ELECTRONICALLY VERIFIED FINAL REPORT 12/29/2024 6:28 PM - Electronically signed by Reuben Ruiz MD
[2024-12-29 18:47] LABS: BLOOD/HEMOGLOBIN,URINE 2+ (NEGATIVE); LEUKOCYTE ESTERASE ,URINE 3+ (NEGATIVE); NITRITES,URINE NEGATIVE (NEGATIVE)
[2024-12-29 18:57] LABS: APPEARANCE,URINE TURBID (CLEAR)
[2024-12-29 18:58] LABS: SQUAMOUS EPITHELIAL CELL,UR RARE /HPF (NEGATIVE)
[2024-12-29] MEDS: ROCEPHIN VIAL 1 GRAM IM ONE (19:37)
[2024-12-29] MEDS: NORCO 7.5/325 MG TAB PO ONE (19:37)
[2024-12-29] MEDS: NS 1,000 ML IV 1,000 ML IV ONE (21:52)
--- NOTE | 2024-12-29 23:57 | CT ---
CT ABDOMEN WITHOUT CONTRAST HISTORY: Chest discomfort COMPARISON: None TECHNIQUE: Axial images were obtained of the abdomen and pelvis without IV contrast. Sagittal and coronal reformatted images were provided. All images were reviewed in a variety of windows and levels. RADIATION REDUCTION TECHNIQUE: Automated exposure control, adjustment of the mA or kV according to patient size, or iterative reconstruction techniques were used. FINDINGS: Please note that lack of IV contrast does limit evaluation of the soft tissues and vascular detail. The visualized lower lung zones are clear. Heart size is normal. No pericardial effusion is seen. Liver, spleen, pancreas, adrenal glands, and kidneys are grossly unremarkable. The left kidney appears slightly atrophied however compared to the right side. Status post cholecystectomy. Limited visu alization of the small bowel and colon overall appear grossly unremarkable. Stomach appears grossly unremarkable. There appears to be a wire like material in the region of the left hemidiaphragm anteriorly just inferior to the heart border which may represent a loose mediastinal wire that is also seen anterior to the heart between the heart and the sternum. The visualized bones demonstrate degenerative changes. There are no concerning lytic or blastic lesions identified. IMPRESSION: 1. There appears to be a wire like material in the region of the left hemidiaphragm anteriorly just inferior to the heart border which may represent a loose mediastinal wire that is also seen anterior to the heart between the heart and the sternum. This was present on a CT angiogram of the chest dated November 27, 2024. THIS IS AN ELECTRONICALLY VERIFIED FINAL REPORT 12/29/2024 11:53 PM - Electronically signed by Reuben Ruiz MD
[2024-12-30] MEDS: NORCO 7.5/325 MG TAB ONE (01:40)
[2024-12-30] MEDS: ROCEPHIN VIAL 1 GRAM ONE (01:40)
[2024-12-30] MEDS: NS 1,000 ML IV 1,000 ML ONE (01:42)
[2024-12-30] MEDS: ROCEPHIN VIAL 1 GRAM 1 G in NS 100 ML IV 100 ML IV SCH (01:42)
[2024-12-30] MEDS: NS 1,000 ML IV 1,000 ML IV SCH (01:48)
[2024-12-30 02:36] VITALS: BMI 18.6
[2024-12-30 08:28] LABS: MEAN PLATELET VOLUME 10.8 fL (7.4-11.0); RED CELL DISTRIBUTION WIDTH 14.8 % (11.6-16.5)
[2024-12-30 08:32] LABS: COR CA(FOR HYPOALB) 9.3 mg/dL (8.5-10.1); CREATININE 2.32 mg/dL (0.55-1.02); eGFR NON BLACK RACES 21 (>60)
[2024-12-30] MEDS: KEPPRA TAB 500 MG PO SCH (10:15)
[2024-12-30] MEDS: PROTONIX TAB 40 MG PO SCH (10:15)
[2024-12-30] MEDS: ALPRAZOLAM ODT PO PRN (10:16)
[2024-12-30] MEDS: NORCO 5/325 MG TAB PO PRN (10:16)
--- NOTE | 2024-12-30 10:58 | DR.H&P ---
H&P History & Physical for Day of: H&P Date: 12/30/24 Chief Complaint Chief Complaint: weakness, N/V/D History of Present Illness History of Present Illness: Patient is a 79-year-old female with a past medical history of CAD, CABG, CKD, hypertension, hypothyroidism, peripheral vascular disease, GERD and hyperlipidemia presented with generalized weakness, nausea, vomiting and diarrhea. She reports having the symptoms for the past 1 week. She has not been able to keep anything down. ER workup showed elevated creatinine, elevated lipase and LFTs. Her plt count was 54. UA was suggestive of UTI. CT abdomen pelvis did not show any acute findings. She was started on IV fluids and IV antibiotics. She is feeling better today. She states diarrhea has improved. Denies any abdominal pain. Labs/imaging reviewed: - WBC 9.7 hemoglobin 10 platelet 54 potassium 4.2 creatinine 2.32 - AST 90 ALT 50 lipase 292 - Urine culture pending -CTAP reviewed: normal liver and pancreas Plan: Admit to ICU, continue monitoring. Continue hydration. Monitor renal function. Continue IV antibiotics. Follow final cultures. Stool studies if patient still having diarrhea. Resume home medications. Zofran as needed. Physical therapy as tolerated. Replace electrolytes as per protocol. Denies active bleeding, monitor platelet count. Monitor a.m. labs and imaging. Time spent for clinical assessment, reviewing labs and imaging, physical exam, decision making and documentation greater than 45 minutes. Past Medical History Past Medical History: Hypertension, Hypothyroidism and NM Past Surgical History Surgical History: CABG/Valve Surgery, Cholecystectomy and Other Family History Family Medical History: Diabetes Mellitus, Cancer, Coronary Artery Disease, Heart Failure and Hypertension Social History Does patient currently use any type of tobacco product: No Have you used tobacco products in the last 12 months: No Type of Tobacco Use: None Does any household member use tobacco: No Alcohol Use: Rarely Drug Use: None Medications Home Medications: Home Medications Medication Instructions Recorded Confirmed Type alprazolam 0.25 mg tablet 0.25 mg PO BID PRN anxiety 0 12/29/24 12/29/24 History cetirizine 10 mg tablet 10 mg PO QDAY 12/29/2412/29 History fenofibrate 160 mg tablet 160 mg PO QDAY 12/29/2412/12 History furosemide 20 mg tablet 20 mg PO QDAY 12/29/2412/29 History furosemide 40 mg tablet 40 mg PO Q OTHER DAY 5 12/29/24 History isosorbide mononitrate 30 mg 30 mg PO QAM 12/29/24 History tablet,extended release 24 hr levetiracetam 500 mg tablet 500 mg PO BID 12/29/24 History levothyroxine 50 mcg tablet 50 mcg PO QAM 12/29/24 History metoprolol succinate 25 mg 25 mg PO QAM 12/29/2412/29 History tablet,extended release 24 hr montelukast 10 mg tablet 10 mg PO QDAY 12/29/2412/29 History pantoprazole 40 mg tablet,delayed 40 mg PO QDAY 12/29/24 History release potassium chloride 20 mEq 20 meq PO QDAY 12/29/2412/12 History tablet,extended release(part/cryst) ropinirole 2 mg tablet 2 mg PO QPM 12/29/24 5 History simvastatin 20 mg tablet 20 mg PO QPM 12/29/24 History Allergies Allergies Allergy/AdvReac Type Severity Reaction Status Date / Time Sulfa (Sulfonamide Allergy Verified 12/29/24 20:06 Antibiotics) (SULFA) Labs 12/30/24 07:57 12/30/24 07:57 Labs: Laboratory WBC 9.7 X10^3/uL (3.6-10.0) 12/30/24 07:57 RBC 3.07 X10^6/uL (3.5-5.4) L 12/30/24 07:57 Hgb 10.0 g/dL (12.0-16.0) L 12/30/24 07:57 Hct 29.4 % (36.0-47.0) L 12/30/24 07:57 MCV 95.6 fL (80.0-100.0) 12/30/24 07:57 MCH 32.5 pg (27.0-34.0) 12/30/24 07:57 MCHC 34.0 g/dL (33.0-35.0) 12/30/24 07:57 RDW 14.8 % (11.6-16.5) 12/30/24 07:57 Plt Count 54 X10^3/uL (150.0-450.0) L 12/30/24 07:57 MPV 10.8 fL (7.4-11.0) 12/30/24 07:57 Neut % (Auto) 80.8 % (42.0-75.0) H 12/30/24 07:57 Lymph % (Auto) 13.6 % (21.0-51.0) L 12/30/24 07:57 [place] % (Auto) 3.9 % (0.0-13.0) 12/30/24 07:57 Eos % (Auto) 0.5 % (0.9-2.9) L 12/30/24 07:57 Baso % (Auto) 1.2 % (0.2-1.0) H 12/30/24 07:57 Neut # (Auto) 7.8 x10^3/uL (2.2-4.8) H 12/30/24 07:57 Lymph # (Auto) 1.3 X10^3/uL (1.3-2.9) 12/30/24 07:57 [place] # (Auto) 0.4 x10^3/uL (0.3-0.8) 12/30/24 07:57 Eos # (Auto) 0.0 x10^3/uL (0.0-0.2) 12/30/24 07:57 Baso # (Auto) 0.1 X10^3/uL (0.0-0.1) 12/30/24 07:57 Absolute Nucleated RBC 0.4 /100WBC 12/30/24 07:57 Sodium 139 mmol/L (136-145) 12/30/24 07:57 Corrected Sodium TNP 12/30/24 07:57 Potassium 4.2 mmol/L (3.5-5.1) 12/30/24 07:57 Chloride 105 mmol/L (98-107) 12/30/24 07:57 Carbon Dioxide 23.4 mmol/L (21-32) 12/30/24 07:57 BUN 98 mg/dL (7-18) H 12/30/24 07:57 Creatinine 2.32 mg/dL (0.55-1.02) H 12/30/24 07:57 Est GFR (MDRD) Af Amer 26 (>60) L 12/30/24 07:57 Est GFR (MDRD) Non-Af 21 (>60) L 12/30/24 07:57 Glucose 92 mg/dL (65-99) 12/30/24 07:57 Calcium 8.3 mg/dL (8.5-10.1) L 12/30/24 07:57 Corrected Calcium 9.3 mg/dL (8.5-10.1) 12/30/24 07:57 Total Bilirubin 2.20 mg/dL (0.2-1.0) H 12/30/24 07:57 AST 90 Units/L (15-37) H 12/30/24 07:57 ALT 50 Units/L (12-78) 12/30/24 07:57 Alkaline Phosphatase 143 Units/L (46-116) H 12/30/24 07:57 Total Protein 7.6 g/dL (6.4-8.2) 12/30/24 07:57 Albumin 2.8 g/dL (3.4-5.0) L 12/30/24 07:57 Globulin 4.8 g/dL (2.5-4.5) H 12/30/24 07:57 Albumin/Globulin Ratio 0.6 Ratio (1.1-2.1) L 12/30/24 07:57 Amylase 102 Units/L (25-115) 12/29/24 17:35 Lipase 292 Units/L (16-77) H 12/29/24 17:35 Specimen Type Clean catch urine 12/29/24 18:30 Urine Color Yellow (YELLOW) 12/29/24 18: Urine Appearance Turbid (CLEAR) 12/29/24 18:30 Urine pH 6.0 (5.0 - 8.0) 12/29/24 18:30 Ur Specific [place] 1.015 (1.000-1.030) 12/29/24 18:30 Urine Protein 1+ (NEGATIVE) 12/29/24 18: Urine Glucose (UA) Negative (NEGATIVE) 12/29/24 18: Urine Ketones Negative (NEGATIVE) 12/29/24 18:30 Urine Blood 2+ (NEGATIVE) 12/29/24 18: Urine Nitrite Negative (NEGATIVE) 12/29/24 18: Urine Bilirubin Negative (NEGATIVE) 12/29/24 18:30 Urine Urobilinogen 2+ (NORMAL) 12/29/24 18:30 Ur Leukocyte Esterase 3+ (NEGATIVE) 12/29/24 18:30 Urine RBC 0-2 /HPF (0-3) 12/29/24 18:30 Urine WBC 3-5 /HPF (0-5) 12/29/24 18:30 Ur Squamous Epith Cells Rare /HPF (NEGATIVE) 12/29/24 18:30 Amorphous Sediment Trace /HPF (NEGATIVE) 12/29/24 18:30 Urine Bacteria 4+ /HPF (NEGATIVE) 12/29/24 18:30 Urine Mucus Rare /HPF (NEGATIVE) 12/29/24 18:30 Ur Culture Indicated? Yes/culture set up 12/29/24 18:30 Review of Systems Constitutional: Weakness and Malaise Eyes: No Symptoms Reported ENT: No Symptoms Reported Respiratory: No Symptoms Reported Cardiovascular: No Symptoms Reported Gastrointestinal: Nausea, Vomiting and Diarrhea Genitourinary: No Symptoms Reported Musculoskeletal: No Symptoms Reported Skin: No Symptoms Reported Neurological: No Symptoms Reported Physical Exam Vital Signs: Vital Signs Temperature 97.6 F Pulse Rate 73 Pulse Rate 76 Pulse Rate 84 Pulse Rate 82 Pulse Rate 73 Respiratory Rate 22 Respiratory Rate 34 Respiratory Rate 27 Respiratory Rate 18 Respiratory Rate 25 Respiratory Rate 20 Blood Pressure 115/55 Blood Pressure 102/55 Blood Pressure 133/65 Blood Pressure 116/56 Blood Pressure 97/49 O2 Sat by Pulse Oximetry 98 O2 Sat by Pulse Oximetry 97 O2 Sat by Pulse Oximetry 93 O2 Sat by Pulse Oximetry 99 Oriented: Normal Respiratory: Diminished Throughout Cardiovascular: Normal Auscultation: Bowel Sounds: Normal Palpation: Normal Tenderness: Normal Skin: Decreased Turgur and Other (chronic venous stasis b/l LE ) Musculoskeletal: Normal Psychiatric: Normal Mood Description: Calm Affect: Normal Speech Pattern: Clear and Appropriate Assessment/Plan (1) Renal failure (ARF), acute on chronic: Qualifiers: Acute renal failure type: unspecified Chronic kidney disease stage: u nspecified stage Qualified Code(s): N17.9 - Acute kidney failure, unspecified; N18.9 - Chronic kidney disease, unspecified Status: Acute (2) UTI (urinary tract infection): Qualifiers: Urinary tract infection type: acute cystitis Hematuria presence: w ithout hematuria Qualified Code(s): N30.00 - Acute cystitis without hematuria Status: Acute (3) Dehydration: Status: Acute (4) PAD (peripheral artery disease): Status: Chronic (5) A-fib: Qualifiers: Atrial fibrillation type: paroxysmal Qualified Code(s): I48.0 - Paroxysmal atrial fibrillation Status: Chronic (6) Anemia: Qualifiers: Anemia type: iron deficiency Iron deficiency anemia type: chronic blood loss Qualified Code(s): 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
[2024-12-30] MEDS: REQUIP PO SCH (20:40)
[2024-12-30] MEDS: ZOCOR TAB 20 MG PO SCH (20:40)
[2024-12-31 05:17] LABS: MEAN PLATELET VOLUME 11.5 fL (7.4-11.0); RED CELL DISTRIBUTION WIDTH 15.5 % (11.6-16.5)
[2024-12-31 05:24] LABS: COR CA(FOR HYPOALB) 9.5 mg/dL (8.5-10.1); CREATININE 1.75 mg/dL (0.55-1.02); eGFR NON BLACK RACES 30 (>60)
[2024-12-31] MEDS: IMDUR PO SCH (08:09)
[2024-12-31] MEDS: TOPROL XL PO SCH (08:10)
[2025-01-01 05:17] LABS: MEAN PLATELET VOLUME 11.2 fL (7.4-11.0); RED CELL DISTRIBUTION WIDTH 15.4 % (11.6-16.5)
[2025-01-01 05:25] LABS: COR CA(FOR HYPOALB) 9.4 mg/dL (8.5-10.1); CREATININE 1.43 mg/dL (0.55-1.02); eGFR NON BLACK RACES 37 (>60)
[2025-01-01] MEDS: MAG-OX TAB PO SCH (08:37)
[2025-01-01] MEDS: K-DUR TAB 20 MEQ PO SCH (08:37)
[2025-01-01] MEDS ORDERED: PHARMACY CONSULT XX SCH (09:00)
[2025-01-01] MEDS: CONSULT PHARMACY - POTASSIUM & MAGNESIUM XX SCH (09:29)
--- NOTE | 2025-01-01 09:46 | PCM.PROG ---
Progress Note Progress Note for Day of Date of Exam: 12/31/24 Subjective Subjective: Patient seen at bedside, no acute events overnight. She is feeling better. She is currently admitted for JOHNNIE and UTI. She remains on IV Rocephin. Urine culture pending. Labs/imaging reviewed: - WBC 3.9 hemoglobin 8.8 Platelet 90 creatinine 1.75 - Urine culture gram-negative rods Plan: Continue to monitor. Continue IV Rocephin. Continue hydration. Replace electrolytes as per protocol. Follow-up final cultures. Monitor a.m. labs and imaging. Ambulate as tolerated. Past Medical Family Social History Allergies: Allergies Sulfa (Sulfonamide Antibiotics) (SULFA) Allergy (Verified 12/29/24 20:06) Vital Signs and I&O's Vital Signs: Vital Signs Temperature 97.6 F Temperature 97.6 F Pulse Rate 74 Pulse Rate 75 Pulse Rate 83 Pulse Rate 70 Pulse Rate 64 Pulse Rate 66 Pulse Rate 71 Pulse Rate 65 Respiratory Rate 21 Respiratory Rate 19 Respiratory Rate 20 Respiratory Rate 15 Respiratory Rate 15 Respiratory Rate 22 Respiratory Rate 26 Respiratory Rate 25 Blood Pressure 141/64 Blood Pressure 121/58 O2 Sat by Pulse Oximetry 100 O2 Sat by Pulse Oximetry 100 O2 Sat by Pulse Oximetry 100 O2 Sat by Pulse Oximetry 100 O2 Sat by Pulse Oximetry 99 O2 Sat by Pulse Oximetry 100 O2 Sat by Pulse Oximetry 100 O2 Sat by Pulse Oximetry 99 Intake and Output: Intake & Output 12/29/24 12/30/24 12/31/24 01/01/25 23:59 23:59 23:59 23:59 Intake Total 3038 / 3038 3914 / 3914 755 / 755 Output Total 1050 / 1050 Balance 1987 3914 / 3914 755 / 755 Physical Exam Oriented: Normal Respiratory: Normal Cardiovascular: Normal Auscultation: Bowel Sounds: Normal Palpation: Normal Tenderness: Normal Skin: Decreased Turgur and Other (chronic venous stasis b/l LE ) Musculoskeletal: Normal Psychiatric: Normal Mood Description: Calm Affect: Normal Speech Pattern: Clear and Appropriate Laboratory and Diagnostics 01/01/25 04:33 01/01/25 04:33 Labs: 12/29/24 18:30 Urine,Clean Catch Urine Culture - Preliminary Laboratory WBC 2.6 X10^3/uL (3.6-10.0) L 01/01/25 04:33 RBC 2.48 X10^6/uL (3.5-5.4) L 01/01/25 04:33 Hgb 7.9 g/dL (12.0-16.0) L 01/01/25 04:33 Hct 23.9 % (36.0-47.0) L 01/01/25 04:33 MCV 96.3 fL (80.0-100.0) 01/01/25 04:33 MCH 32.1 pg (27.0-34.0) 01/01/25 04:33 MCHC 33.3 g/dL (33.0-35.0) 01/01/25 04:33 RDW 15.4 % (11.6-16.5) 01/01/25 04:33 Plt Count 60 X10^3/uL (150.0-450.0) L 01/01/25 04:33 MPV 11.2 fL (7.4-11.0) H 01/01/25 04:33 Neut % (Auto) 54.1 % (42.0-75.0) 01/01/25 04:33 Lymph % (Auto) 29.0 % (21.0-51.0) 01/01/25 04:33 [place] % (Auto) 9.4 % (0.0-13.0) 01/01/25 04:33 Eos % (Auto) 7.1 % (0.9-2.9) H 01/01/25 04:33 Baso % (Auto) 0.4 % (0.2-1.0) 01/01/25 04:33 Neut # (Auto) 1.4 x10^3/uL (2.2-4.8) L 01/01/25 04:33 Lymph # (Auto) 0.8 X10^3/uL (1.3-2.9) L 01/01/25 04:33 [place] # (Auto) 0.2 x10^3/uL (0.3-0.8) L 01/01/25 04:33 Eos # (Auto) 0.2 x10^3/uL (0.0-0.2) 01/01/25 04:33 Baso # (Auto) 0.0 X10^3/uL (0.0-0.1) 01/01/25 04:33 Absolute Nucleated RBC 0.2 /100WBC 01/01/25 04:33 Sodium 144 mmol/L (136-145) 01/01/25 04:33 Corrected Sodium TNP 01/01/25 04:33 Potassium 3.7 mmol/L (3.5-5.1) 01/01/25 04:33 Chloride 115 mmol/L (98-107) H* 01/01/25 04:33 Carbon Dioxide 20.1 mmol/L (21-32) L 01/01/25 04:33 BUN 44 mg/dL (7-18) H 01/01/25 04:33 Creatinine 1.43 mg/dL (0.55-1.02) H 01/01/25 04:33 Est GFR (MDRD) Af Amer 45 (>60) L 01/01/25 04:33 Est GFR (MDRD) Non-Af 37 (>60) L 01/01/25 04:33 Glucose 71 mg/dL (65-99) 01/01/25 04:33 Calcium 7.7 mg/dL (8.5-10.1) L 01/01/25 04:33 Corrected Calcium 9.4 mg/dL (8.5-10.1) 01/01/25 04:33 Magnesium 1.9 mg/dL (2.0-2.9) L 01/01/25 04:33 Total Bilirubin 1.00 mg/dL (0.2-1.0) 01/01/25 04:33 AST 61 Units/L (15-37) H 01/01/25 04:33 ALT 34 Units/L (12-78) 01/01/25 04:33 Alkaline Phosphatase 108 Units/L (46-116) 01/01/25 04:33 Total Protein 5.8 g/dL (6.4-8.2) L 01/01/25 04:33 Albumin 1.9 g/dL (3.4-5.0) L 01/01/25 04:33 Globulin 3.9 g/dL (2.5-4.5) 01/01/25 04:33 Albumin/Globulin Ratio 0.5 Ratio (1.1-2.1) L 01/01/25 04:33 Amylase 102 Units/L (25-115) 12/29/24 17:35 Lipase 292 Units/L (16-77) H 12/29/24 17:35 Specimen Type Clean catch urine 12/29/24 18:30 Urine Color Yellow (YELLOW) 12/29/24 18: Urine Appearance Turbid (CLEAR) 12/29/24 18:30 Urine pH 6.0 (5.0 - 8.0) 12/29/24 18:30 Ur Specific [place] 1.015 (1.000-1.030) 12/29/24 18:30 Urine Protein 1+ (NEGATIVE) 12/29/24 18:30 Urine Glucose (UA) Negative (NEGATIVE) 12/29/24 18: Urine Ketones Negative (NEGATIVE) 12/29/24 18: Urine Blood 2+ (NEGATIVE) 12/29/24 18: Urine Nitrite Negative (NEGATIVE) 12/29/24 18:30 Urine Bilirubin Negative (NEGATIVE) 12/29/24 18:30 Urine Urobilinogen 2+ (NORMAL) 12/29/24 18:30 Ur Leukocyte Esterase 3+ (NEGATIVE) 12/29/24 18:30 Urine RBC 0-2 /HPF (0-3) 12/29/24 18:30 Urine WBC 3-5 /HPF (0-5) 12/29/24 18:30 Ur Squamous Epith Cells Rare /HPF (NEGATIVE) 12/29/24 18:30 Amorphous Sediment Trace /HPF (NEGATIVE) 12/29/24 18:30 Urine Bacteria 4+ /HPF (NEGATIVE) 12/29/24 18:30 Urine Mucus Rare /HPF (NEGATIVE) 12/29/24 18:30 Ur Culture Indicated? Yes/culture set up 12/29/24 18:30 Plan (1) Renal failure (ARF), acute on chronic: Status: Acute Qualifiers: Acute renal failure type: unspecified Chronic kidney disease stage: u nspecified stage Qualified Code(s): N17.9 - Acute kidney failure, unspecified; N18.9 - Chronic kidney disease, unspecified (2) UTI (urinary tract infection): Status: Acute Qualifiers: Hematuria presence: without hematuria Urinary tract infection type: a cute cystitis Qualified Code(s): N30.00 - Acute cystitis without hematuria (3) Dehydration: Status: Acute (4) PAD (peripheral artery disease): Status: Chronic (5) A-fib: Status: Chronic Qualifiers: Atrial fibrillation type: paroxysmal Qualified Code(s): I48.0 - Paroxysmal atrial fibrillation (6) Anemia: Status: Chronic Qualifiers: Anemia type: iron deficiency Iron deficiency anemia type: chronic blood loss Qualified Code(s): D50.0 - Iron deficiency anemia secondary to blood loss (chronic) (7) Thrombocytopenia: Status: Acute
[2025-01-01] MEDS: INVanz INJ 1 GRAM VIAL 1 G in NS 100 ML IV 100 ML IV SCH (11:10)
--- NOTE | 2025-01-01 12:04 | PCM.PROG ---
Progress Note Progress Note for Day of Date of Exam: 01/01/25 Subjective Subjective: Patient seen at bedside, no acute events overnight. She is feeling better. She is currently admitted for JOHNNIE and UTI. Urine culture shows ESBL E. coli. Labs/imaging reviewed: - WBC 2.6 hemoglobin 7.9 Platelet 60 creatinine 1.43 - Urine culture ESBL E. coli Plan: Continue to monitor. Switch to Invanz daily. Stop IV fluids. Replace electrolytes as per protocol. Order iron studies. Repeat hemoglobin at 5 PM . Patient does not have any help at home at this time. Her son is currently in [place]. Patient does need 10 to 14 days of IV antibiotics. Will check with CM if patient can be admitted to swing bed for IV antibiotics. Monitor a.m. labs and imaging. Past Medical Family Social History Allergies: Allergies Sulfa (Sulfonamide Antibiotics) (SULFA) Allergy (Verified 12/29/24 20:06) Vital Signs and I&O's Vital Signs: Vital Signs Temperature 97.6 F Pulse Rate 74 Pulse Rate 75 Pulse Rate 83 Pulse Rate 70 Pulse Rate 64 Respiratory Rate 21 Respiratory Rate 19 Respiratory Rate 20 Respiratory Rate 15 Respiratory Rate 15 Blood Pressure 141/64 O2 Sat by Pulse Oximetry 100 O2 Sat by Pulse Oximetry 100 O2 Sat by Pulse Oximetry 100 O2 Sat by Pulse Oximetry 100 O2 Sat by Pulse Oximetry 99 Intake and Output: Intake & Output 12/29/24 12/30/24 12/31/24 01/01/25 23:59 23:59 23:59 23:59 Intake Total 3038 / 3038 3914 / 3914 755 / 755 Output Total 1050 / 1050 Balance 1987 3914 / 3914 755 / 755 Physical Exam Oriented: Normal Respiratory: Normal Cardiovascular: Normal Auscultation: Bowel Sounds: Normal Palpation: Normal Tenderness: Normal Skin: Decreased Turgur and Other (chronic venous stasis b/l LE ) Musculoskeletal: Normal Psychiatric: Normal Mood Description: Calm Affect: Normal Speech Pattern: Clear and Appropriate Laboratory and Diagnostics 01/01/25 04:33 01/01/25 04:33 Labs: 12/29/24 18:30 Urine,Clean Catch Urine Culture - Final Escherichia Coli Esbl Laboratory WBC 2.6 X10^3/uL (3.6-10.0) L 01/01/25 04:33 RBC 2.48 X10^6/uL (3.5-5.4) L 01/01/25 04:33 Hgb 7.9 g/dL (12.0-16.0) L 01/01/25 04:33 Hct 23.9 % (36.0-47.0) L 01/01/25 04:33 MCV 96.3 fL (80.0-100.0) 01/01/25 04:33 MCH 32.1 pg (27.0-34.0) 01/01/25 04:33 MCHC 33.3 g/dL (33.0-35.0) 01/01/25 04:33 RDW 15.4 % (11.6-16.5) 01/01/25 04:33 Plt Count 60 X10^3/uL (150.0-450.0) L 01/01/25 04:33 MPV 11.2 fL (7.4-11.0) H 01/01/25 04:33 Neut % (Auto) 54.1 % (42.0-75.0) 01/01/25 04:33 Lymph % (Auto) 29.0 % (21.0-51.0) 01/01/25 04:33 [place] % (Auto) 9.4 % (0.0-13.0) 01/01/25 04:33 Eos % (Auto) 7.1 % (0.9-2.9) H 01/01/25 04:33 Baso % (Auto) 0.4 % (0.2-1.0) 01/01/25 04:33 Neut # (Auto) 1.4 x10^3/uL (2.2-4.8) L 01/01/25 04:33 Lymph # (Auto) 0.8 X10^3/uL (1.3-2.9) L 01/01/25 04:33 [place] # (Auto) 0.2 x10^3/uL (0.3-0.8) L 01/01/25 04:33 Eos # (Auto) 0.2 x10^3/uL (0.0-0.2) 01/01/25 04:33 Baso # (Auto) 0.0 X10^3/uL (0.0-0.1) 01/01/25 04:33 Absolute Nucleated RBC 0.2 /100WBC 01/01/25 04:33 Sodium 144 mmol/L (136-145) 01/01/25 04:33 Corrected Sodium TNP 01/01/25 04:33 Potassium 3.7 mmol/L (3.5-5.1) 01/01/25 04:33 Chloride 115 mmol/L (98-107) H* 01/01/25 04:33 Carbon Dioxide 20.1 mmol/L (21-32) L 01/01/25 04:33 BUN 44 mg/dL (7-18) H 01/01/25 04:33 Creatinine 1.43 mg/dL (0.55-1.02) H 01/01/25 04:33 Est GFR (MDRD) Af Amer 45 (>60) L 01/01/25 04:33 Est GFR (MDRD) Non-Af 37 (>60) L 01/01/25 04:33 Glucose 71 mg/dL (65-99) 01/01/25 04:33 Calcium 7.7 mg/dL (8.5-10.1) L 01/01/25 04:33 Corrected Calcium 9.4 mg/dL (8.5-10.1) 01/01/25 04:33 Magnesium 1.9 mg/dL (2.0-2.9) L 01/01/25 04:33 Iron 113 ug/dL (50-175) 01/01/25 09:58 TIBC 116 ug/dL (250-450) L 01/01/25 09:58 Ferritin 1871 ng/mL (8-252) H 01/01/25 09:58 Total Bilirubin 1.00 mg/dL (0.2-1.0) 01/01/25 04:33 AST 61 Units/L (15-37) H 01/01/25 04:33 ALT 34 Units/L (12-78) 01/01/25 04:33 Alkaline Phosphatase 108 Units/L (46-116) 01/01/25 04:33 Total Protein 5.8 g/dL (6.4-8.2) L 01/01/25 04:33 Albumin 1.9 g/dL (3.4-5.0) L 01/01/25 04:33 Globulin 3.9 g/dL (2.5-4.5) 01/01/25 04:33 Albumin/Globulin Ratio 0.5 Ratio (1.1-2.1) L 01/01/25 04:33 Amylase 102 Units/L (25-115) 12/29/24 17:35 Lipase 292 Units/L (16-77) H 12/29/24 17:35 Specimen Type Clean catch urine 12/29/24 18:30 Urine Color Yellow (YELLOW) 12/29/24 18:30 Urine Appearance Turbid (CLEAR) 12/29/24 18:30 Urine pH 6.0 (5.0 - 8.0) 12/29/24 18:30 Ur Specific [place] 1.015 (1.000-1.030) 12/29/24 18:30 Urine Protein 1+ (NEGATIVE) 12/29/24 18:30 Urine Glucose (UA) Negative (NEGATIVE) 12/29/24 18:30 Urine Ketones Negative (NEGATIVE) 12/29/24 18:30 Urine Blood 2+ (NEGATIVE) 12/29/24 18:30 Urine Nitrite Negative (NEGATIVE) 12/29/24 18:30 Urine Bilirubin Negative (NEGATIVE) 12/29/24 18:30 Urine Urobilinogen 2+ (NORMAL) 12/29/24 18:30 Ur Leukocyte Esterase 3+ (NEGATIVE) 12/29/24 18:30 Urine RBC 0-2 /HPF (0-3) 12/29/24 18:30 Urine WBC 3-5 /HPF (0-5) 12/29/24 18:30 Ur Squamous Epith Cells Rare /HPF (NEGATIVE) 12/29/24 18:30 Amorphous Sediment Trace /HPF (NEGATIVE) 12/29/24 18:30 Urine Bacteria 4+ /HPF (NEGATIVE) 12/29/24 18:30 Urine Mucus Rare /HPF (NEGATIVE) 12/29/24 18:30 Ur Culture Indicated? Yes/culture set up 12/29/24 18:30 Plan (1) Urinary tract infection due to ESBL Klebsiella: Status: Acute (2) Renal failure (ARF), acute on chronic: Status: Acute Qualifiers: Acute renal failure type: unspecified Chronic kidney disease stage: u nspecified stage Qualified Code(s): N17.9 - Acute kidney failure, unspecified; N18.9 - Chronic kidney disease, unspecified (3) UTI (urinary tract infection): Status: Acute Qualifiers: Urinary tract infection type: acute cystitis Hematuria presence: w ithout hematuria Qualified Code(s): N30.00 - Acute cystitis without hematuria (4) Dehydration: Status: Acute (5) PAD (peripheral artery disease): Status: Chronic (6) A-fib: Status: Chronic Qualifiers: Atrial fibrillation type: paroxysmal Qualified Code(s): I48.0 - Paroxysmal atrial fibrillation (7) Anemia: Status: Chronic Qualifiers: Anemia type: iron deficiency Iron deficiency anemia type: chronic blood loss Qualified Code(s): D50.0 - Iron deficiency anemia secondary to blood loss (chronic) (8) Thrombocytopenia: Status: Chronic
[2025-01-02 04:08] VITALS: RESP 18
[2025-01-02 04:54] LABS: MEAN PLATELET VOLUME 10.5 fL (7.4-11.0); RED CELL DISTRIBUTION WIDTH 15.9 % (11.6-16.5)
[2025-01-02 05:05] LABS: COR CA(FOR HYPOALB) 9.6 mg/dL (8.5-10.1); CREATININE 1.16 mg/dL (0.55-1.02); eGFR NON BLACK RACES 48 (>60)
[2025-01-02] MEDS ORDERED: CONSULT PHARMACY - POTASSIUM & MAGNESIUM XX SCH (07:00)
[2025-01-02 08:04] VITALS: BP 148/75; PULSE 70; TEMP 97.7; O2SAT 95
[2025-01-02] MEDS: NS 250 ML IV 25 ML IV PRN (08:21)
[2025-01-02] MEDS: MAG-OX TAB PO SCH (08:40)
[2025-01-02] MEDS: NS 250 ML IV 250 ML IV ONE (08:59)
--- NOTE | 2025-01-03 16:13 | W.DIS.FURT ---
Summary of Discharge Discharge Summary of Date Date of Exam: 01/02/25 Admission Date Date of Admission: 12/30/24 Admission Diagnosis Patient Problems (Updated 01/01/25 @ 12:03 by Anne-Marie Ren MD) Chronic renal insufficiency (Acute) N18.9 UTI (urinary tract infection) (Acute) N39.0 Dehydration (Acute) E86.0 Hospital Course: Patient is a 79-year-old female with a past medical history of CAD, CABG, CKD, hypertension, hypothyroidism, peripheral vascular disease, GERD and hyperlipidemia presented with generalized weakness, nausea, vomiting and diarrhea. She reports having the symptoms for the past 1 week. She has not been able to keep anything down. ER workup showed elevated creatinine, elevated lipase and LFTs. Her plt count was 54. UA was suggestive of UTI. CT abdomen pelvis did not show any acute findings. She was started on IV fluids and IV antibiotics. She is feeling better today. She states diarrhea has improved. Denies any abdominal pain. Her labs are monitored daily and electrolytes replaced as needed. She was tolerating p.o. intake and ambulating in the room. All her GI symptoms had resolved. Urine culture did grow out ESBL E. coli. Her antibiotic was switched to Invanz. Patient does need IV antibiotic treatment for ESBL E. coli UTI. Patient will be transition to swing bed for IV antibiotics and physical therapy. Vital Signs: Vital Signs (72 hours) 12/30/24 10:00 12/30/24 10:16 12/30/24 10:57 Temperature Pulse Rate 81 Respiratory Rate 20 22 Blood Pressure 133/60 O2 Sat by Pulse Oximetry 98 Oxygen Delivery Method Room Air 12/30/24 10:57 12/30/24 10:57 12/30/24 11:00 Temperature Pulse Rate 81 76 Respiratory Rate 15 15 Blood Pressure 133/60 103/52 O2 Sat by Pulse Oximetry 98 99 Oxygen Delivery Method Room Air 12/30/24 11:00 12/30/24 11:00 12/30/24 11:00 Temperature Pulse Rate 77 Respiratory Rate 16 Blood Pressure 103/52 103/52 O2 Sat by Pulse Oximetry 100 Oxygen Delivery Method 12/30/24 11:00 12/30/24 11:16 12/30/24 12:00 Temperature Pulse Rate 77 Respiratory Rate 16 18 Blood Pressure 73/40 O2 Sat by Pulse Oximetry 100 Oxygen Delivery Method Room Air 12/30/24 12:00 12/30/24 12:13 12/30/24 12:13 Temperature 97.5 F L Pulse Rate 71 72 Respiratory Rate 20 22 Blood Pressure 88/50 O2 Sat by Pulse Oximetry 98 99 Oxygen Delivery Method Room Air 12/30/24 13:00 12/30/24 13:00 12/30/24 14:00 Temperature Pulse Rate 80 78 Respiratory Rate 23 17 Blood Pressure 77/52 O2 Sat by Pulse Oximetry 100 97 Oxygen Delivery Method 12/30/24 14:00 12/30/24 15:00 12/30/24 16:00 Temperature 97.5 F L Pulse Rate 73 71 Respiratory Rate 22 21 Blood Pressure 97/46 93/44 95/51 O2 Sat by Pulse Oximetry 99 100 Oxygen Delivery Method Room Air Room Air 12/30/24 17:00 12/30/24 18:00 12/30/24 19:00 Temperature Pulse Rate 71 70 Respiratory Rate 19 20 Blood Pressure 89/50 120/57 O2 Sat by Pulse Oximetry 100 100 Oxygen Delivery Method Room Air Room Air Room Air 12/30/24 19:00 12/30/24 19:00 12/30/24 20:00 Temperature 97.4 F L Pulse Rate 71 Respiratory Rate 13 Blood Pressure 103/51 101/56 O2 Sat by Pulse Oximetry 99 Oxygen Delivery Method 12/30/24 20:00 12/30/24 21:09 12/30/24 21:10 Temperature Pulse Rate 78 79 76 Respiratory Rate 24 19 Blood Pressure O2 Sat by Pulse Oximetry 95 100 Oxygen Delivery Method 12/30/24 21:10 12/30/24 22:00 12/30/24 22:00 Temperature Pulse Rate 69 Respiratory Rate 15 Blood Pressure 127/58 96/53 O2 Sat by Pulse Oximetry 100 Oxygen Delivery Method 12/30/24 23:00 12/30/24 23:00 12/31/24 00:00 Temperature Pulse Rate 72 78 Respiratory Rate 18 25 H Blood Pressure 112/51 O2 Sat by Pulse Oximetry 100 100 Oxygen Delivery Method 12/31/24 00:03 12/31/24 00:03 12/31/24 01:00 Temperature 97.6 F Pulse Rate 77 76 Respiratory Rate 29 H 16 Blood Pressure 110/56 O2 Sat by Pulse Oximetry 100 100 Oxygen Delivery Method 12/31/24 02:00 12/31/24 02:00 12/31/24 03:00 Temperature Pulse Rate 77 78 Respiratory Rate 21 17 Blood Pressure 106/57 O2 Sat by Pulse Oximetry 98 100 Oxygen Delivery Method 12/31/24 03:59 12/31/24 03:59 12/31/24 04:00 Temperature 97.5 F L Pulse Rate 81 81 Respiratory Rate 21 16 Blood Pressure 116/70 O2 Sat by Pulse Oximetry 100 100 Oxygen Delivery Method 12/31/24 05:00 12/31/24 06:00 12/31/24 06:00 Temperature Pulse Rate 77 75 Respiratory Rate 27 H 32 H Blood Pressure 109/54 O2 Sat by Pulse Oximetry 99 100 Oxygen Delivery Method 12/31/24 07:00 12/31/24 08:00 12/31/24 09:12 Temperature 97.7 F Pulse Rate 81 Respiratory Rate 19 Blood Pressure 131/58 O2 Sat by Pulse Oximetry 100 Oxygen Delivery Method Room Air Room Air Room Air 12/31/24 10:30 12/31/24 13:00 12/31/24 16:00 Temperature 97.8 F 97.5 F L Pulse Rate 72 71 69 Respiratory Rate 17 20 16 Blood Pressure 125/61 114/57 104/55 O2 Sat by Pulse Oximetry 100 100 100 Oxygen Delivery Method Room Air Room Air Room Air 12/31/24 19:00 12/31/24 19:30 12/31/24 19:51 Temperature 97.9 F Pulse Rate 68 Respiratory Rate 16 Blood Pressure 107/51 O2 Sat by Pulse Oximetry 100 Oxygen Delivery Method Room Air 12/31/24 19:51 12/31/24 20:00 12/31/24 20:19 Temperature Pulse Rate 70 75 Respiratory Rate 25 H 21 Blood Pressure O2 Sat by Pulse Oximetry 100 Oxygen Delivery Method Room Air 12/31/24 20:20 12/31/24 21:00 12/31/24 22:00 Temperature Pulse Rate 66 67 Respiratory Rate 16 21 18 Blood Pressure O2 Sat by Pulse Oximetry 100 100 Oxygen Delivery Method 12/31/24 23:00 01/01/25 00:00 01/01/25 00:07 Temperature Pulse Rate 68 67 Respiratory Rate 20 20 16 Blood Pressure O2 Sat by Pulse Oximetry 98 100 Oxygen Delivery Method 01/01/25 00:12 01/01/25 00:12 01/01/25 01:00 Temperature 97.7 F Pulse Rate 67 67 Respiratory Rate 19 24 Blood Pressure 108/51 O2 Sat by Pulse Oximetry 100 100 Oxygen Delivery Method 01/01/25 02:00 01/01/25 03:00 01/01/25 03:57 Temperature 97.6 F Pulse Rate 65 71 Respiratory Rate 25 H 26 H Blood Pressure 121/58 O2 Sat by Pulse Oximetry 99 100 Oxygen Delivery Method 01/01/25 03:57 01/01/25 04:00 01/01/25 07:00 Temperature Pulse Rate 66 64 Respiratory Rate 22 15 Blood Pressure O2 Sat by Pulse Oximetry 100 99 Oxygen Delivery Method Room Air 01/01/25 07:00 01/01/25 08:00 01/01/25 08:39 Temperature 97.6 F Pulse Rate 70 83 75 Respiratory Rate 15 20 19 Blood Pressure 141/64 O2 Sat by Pulse Oximetry 100 100 100 Oxygen Delivery Method 01/01/25 09:00 01/01/25 10:00 01/01/25 11:00 Temperature Pulse Rate 74 73 69 Respiratory Rate 21 26 H 22 Blood Pressure O2 Sat by Pulse Oximetry 100 100 100 Oxygen Delivery Method 01/01/25 12:43 01/01/25 16:02 01/01/25 19:00 Temperature 97.5 F L 97.5 F L Pulse Rate 72 75 Respiratory Rate 19 18 Blood Pressure 131/60 121/59 O2 Sat by Pulse Oximetry 100 96 Oxygen Delivery Method Room Air 01/01/25 20:00 01/01/25 20:05 01/02/25 00:00 Temperature 98.4 F 98.3 F Pulse Rate 68 71 Respiratory Rate 16 14 Blood Pressure 133/59 123/60 O2 Sat by Pulse Oximetry 96 98 Oxygen Delivery Method Room Air 01/02/25 04:00 01/02/25 07:00 01/02/25 08:00 Temperature 98.4 F 97.7 F Pulse Rate 75 70 Respiratory Rate 18 18 Blood Pressure 125/64 148/75 O2 Sat by Pulse Oximetry 99 95 Oxygen Delivery Method Room Air Room Air 01/02/25 09:01 Temperature Pulse Rate Respiratory Rate Blood Pressure O2 Sat by Pulse Oximetry Oxygen Delivery Method Room Air Labs: Laboratory Last Values WBC 3.6 X10^3/uL (3.6-10.0) 01/02/25 04:17 RBC 2.61 X10^6/uL (3.5-5.4) L 01/02/25 04:17 Hgb 8.4 g/dL (12.0-16.0) L 01/02/25 04:17 Hct 25.0 % (36.0-47.0) L 01/02/25 04:17 MCV 95.8 fL (80.0-100.0) 01/02/25 04:17 MCH 32.1 pg (27.0-34.0) 01/02/25 04:17 MCHC 33.5 g/dL (33.0-35.0) 01/02/25 04:17 RDW 15.9 % (11.6-16.5) 01/02/25 04:17 Plt Count 80 X10^3/uL (150.0-450.0) L 01/02/25 04:17 MPV 10.5 fL (7.4-11.0) 01/02/25 04:17 Neut % (Auto) 52.3 % (42.0-75.0) 01/02/25 04:17 Lymph % (Auto) 31.1 % (21.0-51.0) 01/02/25 04:17 [place] % (Auto) 10.3 % (0.0-13.0) 01/02/25 04:17 Eos % (Auto) 5.7 % (0.9-2.9) H 01/02/25 04:17 Baso % (Auto) 0.6 % (0.2-1.0) 01/02/25 04:17 Neut # (Auto) 1.9 x10^3/uL (2.2-4.8) L 01/02/25 04:17 Lymph # (Auto) 1.1 X10^3/uL (1.3-2.9) L 01/02/25 04:17 [place] # (Auto) 0.4 x10^3/uL (0.3-0.8) 01/02/25 04:17 Eos # (Auto) 0.2 x10^3/uL (0.0-0.2) 01/02/25 04:17 Baso # (Auto) 0.0 X10^3/uL (0.0-0.1) 01/02/25 04:17 Absolute Nucleated RBC 0.5 /100WBC 01/02/25 04:17 Sodium 144 mmol/L (136-145) 01/02/25 04:17 Corrected Sodium TNP 01/02/25 04:17 Potassium 4.1 mmol/L (3.5-5.1) 01/02/25 04:17 Chloride 116 mmol/L (98-107) H* 01/02/25 04:17 Carbon Dioxide 18.9 mmol/L (21-32) L 01/02/25 04:17 BUN 31 mg/dL (7-18) H 01/02/25 04:17 Creatinine 1.16 mg/dL (0.55-1.02) H 01/02/25 04:17 Est GFR (MDRD) Af Amer 58 (>60) L 01/02/25 04:17 Est GFR (MDRD) Non-Af 48 (>60) L 01/02/25 04:17 Glucose 78 mg/dL (65-99) 01/02/25 04:17 Calcium 8.2 mg/dL (8.5-10.1) L 01/02/25 04:17 Corrected Calcium 9.6 mg/dL (8.5-10.1) 01/02/25 04:17 Magnesium 1.8 mg/dL (2.0-2.9) L 01/02/25 04:17 Iron 113 ug/dL (50-175) 01/01/25 09:58 TIBC 116 ug/dL (250-450) L 01/01/25 09:58 Ferritin 1871 ng/mL (8-252) H 01/01/25 09:58 Total Bilirubin 1.10 mg/dL (0.2-1.0) H 01/02/25 04:17 AST 70 Units/L (15-37) H 01/02/25 04:17 ALT 40 Units/L (12-78) 01/02/25 04:17 Alkaline Phosphatase 122 Units/L (46-116) H 01/02/25 04:17 Total Protein 6.4 g/dL (6.4-8.2) 01/02/25 04:17 Albumin 2.2 g/dL (3.4-5.0) L 01/02/25 04:17 Globulin 4.2 g/dL (2.5-4.5) 01/02/25 04:17 Albumin/Globulin Ratio 0.5 Ratio (1.1-2.1) L 01/02/25 04:17 Amylase 102 Units/L (25-115) 12/29/24 17:35 Lipase 292 Units/L (16-77) H 12/29/24 17:35 Specimen Type Clean catch urine 12/29/24 18:30 Urine Color Yellow (YELLOW) 12/29/24 18:30 Urine Appearance Turbid (CLEAR) 12/29/24 18:30 Urine pH 6.0 (5.0 - 8.0) 12/29/24 18:30 Ur Specific [place] 1.015 (1.000-1.030) 12/29/24 18:30 Urine Protein 1+ (NEGATIVE) 12/29/24 18:30 Urine Glucose (UA) Negative (NEGATIVE) 12/29/24 18:30 Urine Ketones Negative (NEGATIVE) 12/29/24 18:30 Urine Blood 2+ (NEGATIVE) 12/29/24 18:30 Urine Nitrite Negative (NEGATIVE) 12/29/24 18:30 Urine Bilirubin Negative (NEGATIVE) 12/29/24 18:30 Urine Urobilinogen 2+ (NORMAL) 12/29/24 18:30 Ur Leukocyte Esterase 3+ (NEGATIVE) 12/29/24 18:30 Urine RBC 0-2 /HPF (0-3) 12/29/24 18:30 Urine WBC 3-5 /HPF (0-5) 12/29/24 18:30 Ur Squamous Epith Cells Rare /HPF (NEGATIVE) 12/29/24 18:30 Amorphous Sediment Trace /HPF (NEGATIVE) 12/29/24 18:30 Urine Bacteria 4+ /HPF (NEGATIVE) 12/29/24 18:30 Urine Mucus Rare /HPF (NEGATIVE) 12/29/24 18:30 Ur Culture Indicated? Yes/culture set up 12/29/24 18:30 Reason For Visit: UTI ECOLI ESRL. FAILED OUTPT TX. Discharge Diagnosis All Active Problems (Updated 01/01/25 @ 12:03 by Anne-Marie Ren MD) Urinary tract infection due to ESBL Klebsiella (Acute) Thrombocytopenia (Chronic) Chronic renal insufficiency (Acute) UTI (urinary tract infection) (Acute) Dehydration (Acute) PAD (peripheral artery disease) (Chronic) A-fib (Chronic) Renal failure (ARF), acute on chronic (Acute) Anemia (Chronic) GI bleed (Acute) Hiatal hernia (Chronic) Discharge Medications Discharge Medications: Sulfa (Sulfonamide Antibiotics) (SULFA) Allergy (Verified 12/29/24 20:06) CONTINUE taking the following medications alprazolam 0.25 mg tablet 0.25 mg PO BID PRN anxiety 12/29/24 [History] cetirizine 10 mg tablet 10 mg PO QDAY 12/29/24 [History] fenofibrate 160 mg tablet 160 mg PO QDAY 12/29/24 [History] furosemide 20 mg tablet 20 mg PO QDAY 12/29/24 [History] furosemide 40 mg tablet 40 mg PO Q OTHER DAY 12/29/24 [History] isosorbide mononitrate 30 mg tablet,extended release 24 hr 30 mg PO QAM 12/29/24 [History] levetiracetam 500 mg tablet 500 mg PO BID 12/29/24 [History] levothyroxine 50 mcg tablet 50 mcg PO QAM 12/29/24 [History] metoprolol succinate 25 mg tablet,extended release 24 hr 25 mg PO QAM 12/29/24 [History] montelukast 10 mg tablet 10 mg PO QDAY 12/29/24 [History] pantoprazole 40 mg tablet,delayed release 40 mg PO QDAY 12/29/24 [History] potassium chloride 20 mEq tablet,extended release(part/cryst) 20 meq PO QDAY 12/29/24 [History] ropinirole 2 mg tablet 2 mg PO QPM 12/29/24 [History] simvastatin 20 mg tablet 20 mg PO QPM 12/29/24 [History] Discharge Disposition Assessment: No distress noted at discharge. Discharge Disposition: Swing bed Discharge Condition: Stable Discharge Plan Discharge Plan Hospital Course: Patient is a 79-year-old female with a past medical history of CAD, CABG, CKD, hypertension, hypothyroidism, peripheral vascular disease, GERD and hyperlipidem ia presented with generalized weakness, nausea, vomiting and diarrhea. She reports having the symptoms for the past 1 week. She has not been able to keep anything down. ER workup showed elevated creatinine, elevated lipase and LFTs. Her plt count was 54. UA was suggestive of UTI. CT abdomen pelvis did not show any acute findings. She was started on IV fluids and IV antibiotics. She is feeling better today. She states diarrhea has improved. Denies any abdominal pain. Her labs are monitored daily and electrolytes replaced as needed. She was tolerating p.o. intake and ambulating in the room. All her GI symptoms had resolved. Urine culture did grow out ESBL E. coli. Her antibiotic was switched to Invanz. Patient does need IV antibiotic treatment for ESBL E. coli UTI. Patient will be transition to swing bed for IV antibiotics and physical therapy. Patient Disposition: 61 XFER/DISC TO [facility] Condition: Stable Health Concerns: Post Hospitalization: new medications and changes needed to prevent readmission or further decline. Pt educated and given instructions on all concerns. Care Plan Goals: Problem: Infection Goal: Temperature within normal limits. Resolved infection. Instructions: Follow provided instructions. Follow up with primary physician as directed. Contact primary care physician or report to the closest Emergency Room if condition worsens. Assessment: No distress noted at discharge. Prescription drug monitoring program results: PDMP reviewed and no concerns identified Prescriptions: Continued cetirizine 10 mg tablet 10 mg PO QDAY levetiracetam 500 mg tablet 500 mg PO BID isosorbide mononitrate 30 mg tablet extended release 24 hr 30 mg PO QAM alprazolam 0.25 mg tablet 0.25 mg PO BID PRN (Reason: anxiety) potassium chloride 20 mEq tablet,ER particles/crystals 20 meq PO QDAY levothyroxine 50 mcg tablet 50 mcg PO QAM ropinirole 2 mg tablet 2 mg PO QPM pantoprazole 40 mg tablet,delayed release (DR/EC) 40 mg PO QDAY simvastatin 20 mg tablet 20 mg PO QPM montelukast 10 mg tablet 10 mg PO QDAY furosemide 20 mg tablet 20 mg PO QDAY metoprolol succinate 25 mg tablet extended release 24 hr 25 mg PO QAM fenofibrate 160 mg tablet 160 mg PO QDAY Follow ups/Referrals Follow ups/Referrals: MDMisc [Primary Care Provider] - 3 days Instructions Activity Restrictions/Additional Instructions: Follow up appointments made per family for next week. Stand Alone Forms: Find Help Web Site, Post Hospital Follow Up Care Print Language: FRISIAN
== END 2025-01-02 08:59 | disposition swing bed (61) | DRG 690 ==
LOC: ICU 14:02 → ER 14:02 → OBSVTOIN 12-30 00:42 → ICU 12-30 01:13
PROVIDERS: ADMIT Internal Medicine; ATTEND Internal Medicine
DX: Z16.29 Resistance to other single specified antibiotic; E80.6 Other disorders of bilirubin metabolism; R11.2 Nausea with vomiting, unspecified; Z16.12 Extended spectrum beta lactamase (ESBL) resistance; D69.6 Thrombocytopenia, unspecified; S80.812A Abrasion, left lower leg, initial encounter; E87.1 Hypo-osmolality and hyponatremia; Z16.23 Resistance to quinolones and fluoroquinolones; Y92.9 Unspecified place or not applicable; R53.1 Weakness; Z95.2 Presence of prosthetic heart valve; E83.42 Hypomagnesemia; N17.8 Other acute kidney failure; N18.9 Chronic kidney disease, unspecified; B96.29 Other Escherichia coli [E. coli] as the cause of diseases classified elsewhere; I48.0 Paroxysmal atrial fibrillation; R26.89 Other abnormalities of gait and mobility; N39.0 Urinary tract infection, site not specified; E78.5 Hyperlipidemia, unspecified; E86.0 Dehydration; Z59.86 Financial insecurity; R19.7 Diarrhea, unspecified; X58.XXXA Exposure to other specified factors, initial encounter; R10.84 Generalized abdominal pain; I73.89 Other specified peripheral vascular diseases; D50.0 Iron deficiency anemia secondary to blood loss (chronic); I12.9 Hypertensive chronic kidney disease with stage 1 through stage 4 chronic kidney disease, or unspecified chronic kidney disease; E83.51 Hypocalcemia; I25.810 Atherosclerosis of coronary artery bypass graft(s) without angina pectoris; R42 Dizziness and giddiness; E03.8 Other specified hypothyroidism; I25.2 Old myocardial infarction

== ENCOUNTER 2025-01-02 09:00 | Inpatient (IN) ==
--- NOTE | 2025-01-02 13:18 | PT/OTEVAL ---
PT/OT OBJECTIVES - HISTORY Prescription: OT Consult Diagnosis: ESBL, UTI, failed Outpt tx Precautions: Fall risk PMH: Hypertension, Hypothyroidism and [place], CABG/Valve Surgery, Cholecystectomy Other: Pt reports that she lives at home alone in a 1 story home that has a ramp at the main entrance. Pt states that she frequently stays with her son, where she stays in the basement. There is one flight of stairs leading to the basement with a rail on the L going down. Pt states that she was (I) prior to hospital stay and uses a RW at home. No pain at time of eval. History of Present Illness: Pt is a 79 year old female who was admitted to [facility] with complaint of has been having itching, sores on her extremities that are not healing, diarrhea, nausea and dizziness. Pt is now on swingbed protocol for IV medicaition, and dx of ESBL infection, UTI and failed outpt tx. - COGNITION Mental Status: Alert Communication Status: Verbal Ability to Follow Directions: 2 Step Affect: Calm - PAIN No signs of pain Pain Scale: No Pain - BED MOBILITY Rolling: Supervision - TRANSFERS Supine to Sit: Supervision Sit to Stand: Minimal Sit to Stand Comment: Depending on surface Sit or Stand Pivot: Supervision Sit or Stand Pivot Comment: With UE support Toileting: Supervision - ADL'S Upper Body ADL: Minimum Lower Body ADL: Minimum Toileting: Supervision - BALANCE Static Sitting: Good Standing: Good Dynamic Sitting: Good Standing: Good - NEUROMOTOR/SENSATION [place]. Lower Ext Sensation: WFL Coordination: WFL [place]. Upper Ext Sensation: WFL Coordination: WFL - ROM Bilateral UE ROM: WFL - STRENGTH Bilateral UE Strength Number: 3 Bilateral LE Strength Number: 4 - OBJECTIVE MEASURES & STANDARDS Objective Measures & Standards: Functional reach test during standing without support 4 inches - TREATMENT Date: 01/02/25 Time: 11:40 Treatment Type: Evaluation Treatment Provided: Therapeutic Activities, Other - TOTAL TREATMENT TIME Total Time: 45 - POST ASSESSMENT Post Assessment Comment: Pt was seen for skilled OT to assess CLOF. Pt was able to provide PLOF and hx. Pt supine to sit with supv A. Pt functionally AMB with RW and touch A. Toileting with supv A. Pt given time. Pt given min A for washing hands due to having IV in her R hand and could not get it wet. Pt functionally AMB around facility with RW and touch A. Pt completed functional reach standing and 3 STS with Saarh. Pt given time for all tasks. Pt agreeable to sit up in recliner with all needs met and call light within reach. Pt demonstrate deficits with ADLs and ADL functional mobility. Pt would benefit from skilled OT services to address ADL deficits to facilitate highest level of ADL function needed for safe d/c planning. - EXIT DISPOSITION Exit Position: CHAIR Call light in reach: Yes PT/OT ASSESSMENT - OT Problem List: Decreased Mobility ADL's, Decreased Dressing, Decreased Bathing, Decreased UE Strength - OT GOALS [facility] Goals Days: 20 Mobility for ADL's: Pt to improve functional s/d standning balance to G Dressing: Pt to improve LB dressing to (I) Bathing: Pt to improve overall bathing to (I) Upper Ext. Strength/Use: Pt to improve MMT in BUE by 1 grade Other: Pt to improve FAT to G Short Term Goals Mobility for ADL's: Pt to improve functional reaxh to 8 inches Dressing: Pt to improve UB dressing to (I) Bathing: Pt to improve overall bathing to set up A. Other: Pt to improve FAT to F+ - PATIENT GOALS Patient/Family Goals: Ready to go home Goals Discussed with Patient/Family: Yes Rehabilitation Potential: Good to meet stated goals Justification for Potential: To facilitate highest level of ADL function needed for safe d/c planning. Weakness and Barriers: None - PLAN Suggested Treatment Plan: Therapeutic Activity, Self Care Training, Neuro Re- education, Therapeutic Ex with HEP, Patient Education - FREQUENCY AND DURATION OT: 5x a week x 20 days Expected Continuation of Care at Discharge: Home Health
--- NOTE | 2025-01-02 15:18 | PT/OTEVAL ---
PT/OT OBJECTIVES - HISTORY Prescription: PT Consult Diagnosis: ESBL UTI Precautions: Fall Risk PMH: HTN, Hypothyroidism, [place], CABG/Valve Surgery, Cholecystectomy Prior Level of Function: Independent Other: Per patient report- she resides at home alone in single story home with ramp to enter. Pt also reports that for several weeks at a time she will go stay with her son where she has a basement apartment (flight of steps to get down with rail on L descending). PLOF: Independent within home and community without a device but will use FWW as needed. No other DME. History of Present Illness: Pt is an 79 year old female admitted to [facility] on 12/29/2024 for dehydration, UTI and acute on chronic kidney failure. Pt was found to have ESBL UTI infection requiring IV ABT treatment. Pt was transitioned to swing bed program for IV ABT treatment and will be receiving therapy services in addition to facilitate highest level of function and safe discharge planning. - COGNITION Mental Status: Alert, Oriented, Name, Date, Place, Purpose Communication Status: Verbal Ability to Follow Directions: 2 Step Affect: Calm - PAIN No signs of pain Pain Scale: No Pain Comments: No reports of pain at time of evaluation. - BED MOBILITY Rolling: Supervision - TRANSFERS Supine to Sit: Supervision Sit to Stand: Supervision Sit or Stand Pivot: Supervision - BALANCE Static Sitting: Good Standing: Fair Dynamic Sitting: Good Standing: Fair Balance Comment: Fair- - NEUROMOTOR/SENSATION [place]. Lower Ext Sensation: WFL Coordination: WFL Proprioception: WFL - ROM Bilateral LE ROM: WFL Muscle Tone: WFL - STRENGTH Bilateral LE Strength Number: 4 Other comment: 4-/5 - GAIT Pt. ambulates how many feet?: 150 Amount of Assistance Required: Minimal Type of Assistive Device: Rolling Walker Comments: Touch assist - OBJECTIVE MEASURES & STANDARDS Objective Measures & Standards: 30 Second Sit to Stand: 3 with UE assist - TREATMENT Date: 01/02/25 Time: 11:45 Treatment Type: Evaluation Treatment Provided: Gait, Therapeutic Activities - TOTAL TREATMENT TIME Total Time: 45 - POST ASSESSMENT Post Assessment Comment: Pt was found supine in bed in room and agreeable to participation in PT services. Pt without complaints of pain. Pt demonstrated ability to perform bed mobility tasks with supervision. Pt performed transfers from various surface heights (EOB, recliner and commode) with supervision. Pt performed gait training with FWW and touch assist with focus on maintaining close walker approximation and upright posture for 150ft before requiring seated therapeutic rest break. Pt easily fatigues and requires frequent therapeutic rest breaks throughout session. Pt cued on deep breathing techniques and energy conservation. Pt would benefit from continued participation in PT services to address deficits and facilitate highest level of function and safe discharge planning. - EXIT DISPOSITION Exit Position: CHAIR Call light in reach: Yes Comments: All needs met. PT/OT ASSESSMENT - PT Problem List: Decreased Bed Mobility, Decreased Transfers, Decreased Gait, Decreased Safety, Decreased LE Strength - PT GOALS Short Term Goals Days: 10 Mobility: Pt will perform bed mobility tasks with mod I Transfers: Pt will perform functional transfers with mod I Gait: Pt will ambulate 300ft with FWW with mod I Balance: Pt will increase static standing balance to good Environmental Test Technician Goals Days: 20 Gait: Pt will ambulate 500ft with LRAD and mod I Balance: Pt will increase dynamic standing balance to good ROM/Strength: Pt will increase BLE strength to 5/5 Others: Pt will ascend/descend flight of stairs with single HR and mod I - OT GOALS Environmental Test Technician Goals Days: 20 Mobility for ADL's: Pt to improve functional s/d standning balance to G Dressing: Pt to improve LB dressing to (I) Bathing: Pt to improve overall bathing to (I) Upper Ext. Strength/Use: Pt to improve MMT in BUE by 1 grade Other: Pt to improve FAT to G Short Term Goals Mobility for ADL's: Pt to improve functional reaxh to 8 inches Dressing: Pt to improve UB dressing to (I) Bathing: Pt to improve overall bathing to set up A. Other: Pt to improve FAT to F+ - PATIENT GOALS Patient/Family Goals: "I want to get better and go home" Goals Discussed with Patient/Family: Yes Rehabilitation Potential: Good to meet stated goals Justification for Potential: Facilitate highest level of function and safe discharge planning Weakness and Barriers: None - PLAN Suggested Treatment Plan: Bed Mobility Training, Therapeutic Activity, Gait Training, Neuro Re-education, Therapeutic Ex with HEP, Patient Education, Family Education, Other Other comment: Manual Therapy - FREQUENCY AND DURATION PT: 5x per week x 20 days Expected Continuation of Care at Discharge: Outpatient Therapy, Home Health
[2025-01-02] MEDS: KEPPRA TAB 500 MG PO SCH (20:15)
[2025-01-02] MEDS: ZOCOR TAB 20 MG PO SCH (20:15)
[2025-01-02] MEDS: REQUIP PO SCH (20:16)
[2025-01-03 05:03] LABS: MEAN PLATELET VOLUME 10.1 fL (7.4-11.0); RED CELL DISTRIBUTION WIDTH 15.9 % (11.6-16.5)
[2025-01-03 05:08] LABS: COR CA(FOR HYPOALB) 9.8 mg/dL (8.5-10.1); CREATININE 1.15 mg/dL (0.55-1.02); eGFR NON BLACK RACES 48 (>60)
[2025-01-03 05:25] LABS: BAND NEUTROPHILS % 1 % (0-10)
[2025-01-03 05:26] LABS: PLATELET MORPHOLOGY COMMENT NORMAL (NORMAL)
[2025-01-03] MEDS: TRICOR TAB 160 MG PO SCH (08:27)
[2025-01-03] MEDS: LASIX PO SCH (08:27)
[2025-01-03] MEDS: PROTONIX TAB 40 MG PO SCH (08:27)
[2025-01-03] MEDS: K-DUR TAB 20 MEQ PO SCH (08:27)
[2025-01-03] MEDS: SINGULAIR TAB 10 MG PO SCH (08:28)
[2025-01-03] MEDS: IMDUR PO SCH (08:28)
[2025-01-03] MEDS: TOPROL XL PO SCH (08:28)
[2025-01-03] MEDS: INVanz INJ 1 GRAM VIAL 1 G in NS 100 ML IV 100 ML IV SCH (08:28)
[2025-01-03] MEDS: NS 250 ML IV 250 ML IV ONE (08:33)
[2025-01-03 09:37] VITALS: BMI 21.1
[2025-01-04] MEDS: ALPRAZOLAM ODT PO PRN (02:18)
--- NOTE | 2025-01-04 10:19 | PCM.PROG ---
Progress Note Progress Note for Day of Date of Exam: 01/04/25 Subjective Subjective: Patient is a 79-year-old female admitted as swing bed status for ESBL UTI. She is resting in bed this morning. Per nursing patient has had some disorientation. She was moved from an open ICU to a different room and this may be cause for her disorientation. Will continue to closely monitor. She is resting in bed, no concerns. Labs/imaging:WBC 4.3, hemoglobin 9.1, platelets 109, sodium 143, potassium 3.9, creatinine 1.15, glucose 95. Continue IV antibiotics. Otherwise continue with current treatment plan. Continue to monitor. Past Medical Family Social History Allergies: Allergies Sulfa (Sulfonamide Antibiotics) (SULFA) Allergy (Verified 01/02/25 12:53) Review of Systems ROS changes noted: see HPI Vital Signs and I&O's Vital Signs: Vital Signs Temperature 98.7 F Pulse Rate [Left] 84 Respiratory Rate 19 Blood Pressure [Left Arm] 148/75 O2 Sat by Pulse Oximetry 95 Intake and Output: Intake & Output 01/01/25 01/02/25 01/03/25 01/04/25 23:59 23:59 23:59 23:59 Intake Total 480 / 480 250 / 250 220 / 220 Balance 480 / 480 250 / 250 220 / 220 Physical Exam Oriented: Normal Respiratory: Normal Cardiovascular: Normal Auscultation: Bowel Sounds: Normal Skin: Normal Musculoskeletal: Normal Speech Pattern: Clear and Appropriate Laboratory and Diagnostics 01/03/25 04:35 01/03/25 04:35 Labs: Laboratory WBC 4.3 X10^3/uL (3.6-10.0) 01/03/25 04:35 RBC 2.83 X10^6/uL (3.5-5.4) L 01/03/25 04:35 Hgb 9.1 g/dL (12.0-16.0) L 01/03/25 04:35 Hct 27.3 % (36.0-47.0) L 01/03/25 04:35 MCV 96.6 fL (80.0-100.0) 01/03/25 04:35 MCH 32.2 pg (27.0-34.0) 01/03/25 04:35 MCHC 33.3 g/dL (33.0-35.0) 01/03/25 04:35 RDW 15.9 % (11.6-16.5) 01/03/25 04:35 Plt Count 109 X10^3/uL (150.0-450.0) L 01/03/25 04:35 Plt Count Comment Decreased (ADEQUATE) A 01/03/25 04:35 MPV 10.1 fL (7.4-11.0) 01/03/25 04:35 Neut % (Auto) 54.9 % (42.0-75.0) 01/03/25 04:35 Lymph % (Auto) 30.3 % (21.0-51.0) 01/03/25 04:35 [place] % (Auto) 9.7 % (0.0-13.0) 01/03/25 04:35 Eos % (Auto) 4.1 % (0.9-2.9) H 01/03/25 04:35 Baso % (Auto) 1.0 % (0.2-1.0) 01/03/25 04:35 Neut # (Auto) 2.4 x10^3/uL (2.2-4.8) 01/03/25 04:35 Lymph # (Auto) 1.3 X10^3/uL (1.3-2.9) 01/03/25 04:35 [place] # (Auto) 0.4 x10^3/uL (0.3-0.8) 01/03/25 04:35 Eos # (Auto) 0.2 x10^3/uL (0.0-0.2) 01/03/25 04:35 Baso # (Auto) 0.0 X10^3/uL (0.0-0.1) 01/03/25 04:35 Absolute Nucleated RBC 0.7 /100WBC 01/03/25 04:35 Total Counted 100 01/03/25 04:35 Neutrophils % (Manual) 76 % (39-76) 01/03/25 04:35 Band Neutrophils % 1 % (0-10) 01/03/25 04:35 Lymphocytes % (Manual) 17 % (13-43) 01/03/25 04:35 Monocytes % (Manual) 3 % (4-9) L 01/03/25 04:35 Eosinophils % (Manual) 3 % (0-6) 01/03/25 04:35 Plt Morphology Comment Normal (NORMAL) 01/03/25 04:35 RBC Morphology Normal (NORMAL) 01/03/25 04:35 Sodium 143 mmol/L (136-145) 01/03/25 04:35 Corrected Sodium TNP 01/03/25 04:35 Potassium 3.9 mmol/L (3.5-5.1) 01/03/25 04:35 Chloride 113 mmol/L (98-107) H 01/03/25 04:35 Carbon Dioxide 22.7 mmol/L (21-32) 01/03/25 04:35 BUN 22 mg/dL (7-18) H 01/03/25 04:35 Creatinine 1.15 mg/dL (0.55-1.02) H 01/03/25 04:35 Est GFR (MDRD) Af Amer 58 (>60) L 01/03/25 04:35 Est GFR (MDRD) Non-Af 48 (>60) L 01/03/25 04:35 Glucose 95 mg/dL (65-99) 01/03/25 04:35 Calcium 8.7 mg/dL (8.5-10.1) 01/03/25 04:35 Corrected Calcium 9.8 mg/dL (8.5-10.1) 01/03/25 04:35 Magnesium 1.9 mg/dL (2.0-2.9) L 01/03/25 04:35 Total Bilirubin 1.20 mg/dL (0.2-1.0) H 01/03/25 04:35 AST 84 Units/L (15-37) H 01/03/25 04:35 ALT 46 Units/L (12-78) 01/03/25 04:35 Alkaline Phosphatase 141 Units/L (46-116) H 01/03/25 04:35 Total Protein 7.2 g/dL (6.4-8.2) 01/03/25 04:35 Albumin 2.6 g/dL (3.4-5.0) L 01/03/25 04:35 Globulin 4.6 g/dL (2.5-4.5) H 01/03/25 04:35 Albumin/Globulin Ratio 0.6 Ratio (1.1-2.1) L 01/03/25 04:35 Plan (1) Urinary tract infection due to ESBL Klebsiella: Status: Acute
[2025-01-04] MEDS: NORCO 5/325 MG TAB PO PRN (22:31)
[2025-01-05 06:22] LABS: MEAN PLATELET VOLUME 9.2 fL (7.4-11.0); RED CELL DISTRIBUTION WIDTH 15.5 % (11.6-16.5)
[2025-01-05 06:34] LABS: COR CA(FOR HYPOALB) 9.5 mg/dL (8.5-10.1); CREATININE 1.33 mg/dL (0.55-1.02); eGFR NON BLACK RACES 41 (>60)
[2025-01-05] MEDS ORDERED: CONSULT PHARMACY - POTASSIUM & MAGNESIUM XX SCH (07:00)
[2025-01-05 07:05] LABS: BASOPHILS % (MANUAL) 0 % (0-1); PLATELET MORPHOLOGY COMMENT NORMAL (NORMAL)
--- NOTE | 2025-01-05 09:44 | PCM.PROG ---
Progress Note Progress Note for Day of Date of Exam: 01/05/25 Subjective Subjective: Patient is a 79-year-old female admitted as swing bed status for ESBL UTI. She was examined at bedside and is resting comfortably. Per nursing patient has had some disorientation, however nursing states that son reports she does have this happen sometimes. She is also in a different room in the hospital that could also induce this. No concern on exam. Will continue to closely monitor. She is resting in bed, no concerns. Labs/imaging: WBC 4.3, hemoglobin 8.9, platelets 98, sodium 144, potassium 3.4, creatinine 1.33, glucose 79. Continue IV antibiotics. Otherwise continue with current treatment plan. Continue to monitor. Past Medical Family Social History Allergies: Allergies Sulfa (Sulfonamide Antibiotics) (SULFA) Allergy (Verified 01/02/25 12:53) Review of Systems ROS changes noted: see HPI Vital Signs and I&O's Intake and Output: Intake & Output 01/02/25 01/03/25 01/04/25 01/05/25 23:59 23:59 23:59 23:59 Intake Total 480 / 480 250 / 250 940 / 940 60 / 60 Balance 480 / 480 250 / 250 940 / 940 60 / 60 Physical Exam Oriented: Normal Respiratory: Normal Cardiovascular: Normal Auscultation: Bowel Sounds: Normal Skin: Normal Musculoskeletal: Normal Speech Pattern: Clear and Appropriate Laboratory and Diagnostics 01/05/25 05:50 01/05/25 05:50 Labs: Laboratory WBC 4.3 X10^3/uL (3.6-10.0) 01/05/25 05:50 RBC 2.74 X10^6/uL (3.5-5.4) L 01/05/25 05:50 Hgb 8.9 g/dL (12.0-16.0) L 01/05/25 05:50 Hct 26.5 % (36.0-47.0) L 01/05/25 05:50 MCV 96.8 fL (80.0-100.0) 01/05/25 05:50 MCH 32.5 pg (27.0-34.0) 01/05/25 05:50 MCHC 33.6 g/dL (33.0-35.0) 01/05/25 05:50 RDW 15.5 % (11.6-16.5) 01/05/25 05:50 Plt Count 98 X10^3/uL (150.0-450.0) L 01/05/25 05:50 Plt Count Comment Decreased (ADEQUATE) A 01/05/25 05:50 MPV 9.2 fL (7.4-11.0) 01/05/25 05:50 Neut % (Auto) 55.4 % (42.0-75.0) 01/05/25 05:50 Lymph % (Auto) 28.6 % (21.0-51.0) 01/05/25 05:50 [place] % (Auto) 11.0 % (0.0-13.0) 01/05/25 05:50 Eos % (Auto) 4.3 % (0.9-2.9) H 01/05/25 05:50 Baso % (Auto) 0.7 % (0.2-1.0) 01/05/25 05:50 Neut # (Auto) 2.4 x10^3/uL (2.2-4.8) 01/05/25 05:50 Lymph # (Auto) 1.2 X10^3/uL (1.3-2.9) L 01/05/25 05:50 [place] # (Auto) 0.5 x10^3/uL (0.3-0.8) 01/05/25 05:50 Eos # (Auto) 0.2 x10^3/uL (0.0-0.2) 01/05/25 05:50 Baso # (Auto) 0.0 X10^3/uL (0.0-0.1) 01/05/25 05:50 Absolute Nucleated RBC 0.2 /100WBC 01/05/25 05:50 Total Counted 100 01/05/25 05:50 Neutrophils % (Manual) 73 % (39-76) 01/05/25 05:50 Band Neutrophils % 1 % (0-10) 01/03/25 04:35 Lymphocytes % (Manual) 22 % (13-43) 01/05/25 05:50 Monocytes % (Manual) 4 % (4-9) 01/05/25 05:50 Eosinophils % (Manual) 1 % (0-6) 01/05/25 05:50 Basophils % (Manual) 0 % (0-1) 01/05/25 05:50 Plt Morphology Comment Normal (NORMAL) 01/05/25 05:50 RBC Morphology Normal (NORMAL) 01/05/25 05:50 Sodium 144 mmol/L (136-145) 01/05/25 05:50 Corrected Sodium TNP 01/05/25 05:50 Potassium 3.4 mmol/L (3.5-5.1) L 01/05/25 05:50 Chloride 110 mmol/L (98-107) H 01/05/25 05:50 Carbon Dioxide 23.2 mmol/L (21-32) 01/05/25 05:50 BUN 16 mg/dL (7-18) 01/05/25 05:50 Creatinine 1.33 mg/dL (0.55-1.02) H 01/05/25 05:50 Est GFR (MDRD) Af Amer 49 (>60) L 01/05/25 05:50 Est GFR (MDRD) Non-Af 41 (>60) L 01/05/25 05:50 Glucose 79 mg/dL (65-99) 01/05/25 05:50 Calcium 8.6 mg/dL (8.5-10.1) 01/05/25 05:50 Corrected Calcium 9.5 mg/dL (8.5-10.1) 01/05/25 05:50 Magnesium 1.5 mg/dL (2.0-2.9) L 01/05/25 05:50 Total Bilirubin 1.20 mg/dL (0.2-1.0) H 01/05/25 05:50 AST 66 Units/L (15-37) H 01/05/25 05:50 ALT 43 Units/L (12-78) 01/05/25 05:50 Alkaline Phosphatase 128 Units/L (46-116) H 01/05/25 05:50 Total Protein 7.5 g/dL (6.4-8.2) 01/05/25 05:50 Albumin 2.9 g/dL (3.4-5.0) L 01/05/25 05:50 Globulin 4.6 g/dL (2.5-4.5) H 01/05/25 05:50 Albumin/Globulin Ratio 0.6 Ratio (1.1-2.1) L 01/05/25 05:50 Plan (1) Urinary tract infection due to ESBL Klebsiella: Status: Acute
[2025-01-05] MEDS: MAG-OX TAB PO SCH (09:57)
[2025-01-05] MEDS: K-DUR TAB 20 MEQ PO SCH (09:57)
[2025-01-06 06:54] LABS: MEAN PLATELET VOLUME 9.2 fL (7.4-11.0); RED CELL DISTRIBUTION WIDTH 15.7 % (11.6-16.5)
[2025-01-06 07:14] LABS: COR CA(FOR HYPOALB) 9.6 mg/dL (8.5-10.1); CREATININE 1.25 mg/dL (0.55-1.02); eGFR NON BLACK RACES 44 (>60)
[2025-01-06 07:51] LABS: BASOPHILS % (MANUAL) 1 % (0-1)
[2025-01-06 07:55] LABS: PLATELET MORPHOLOGY COMMENT NORMAL (NORMAL)
[2025-01-06] MEDS ORDERED: CONSULT PHARMACY - POTASSIUM & MAGNESIUM XX SCH (08:00)
[2025-01-06] MEDS: MAG-OX TAB PO SCH (08:06)
[2025-01-07 06:53] LABS: MEAN PLATELET VOLUME 8.7 fL (7.4-11.0); RED CELL DISTRIBUTION WIDTH 15.9 % (11.6-16.5)
[2025-01-07 07:13] LABS: COR CA(FOR HYPOALB) 9.5 mg/dL (8.5-10.1); CREATININE 1.35 mg/dL (0.55-1.02); eGFR NON BLACK RACES 40 (>60)
[2025-01-07 08:44] LABS: PLATELET MORPHOLOGY COMMENT NORMAL (NORMAL)
--- NOTE | 2025-01-08 09:36 | PCM.PROG ---
Progress Note Progress Note for Day of Date of Exam: 01/08/25 Subjective Subjective: Patient seen at bedside, no acute events overnight. She is currently admitted as swing bed status for ESBL UTI. She remains in IV antibiotics. She is doing well, has been ambulating with PT. Family at bedside. Patient's last day for antibiotics is Wednesday. She is scheduled to see Vascular and have more testing done for PVD. Her leg edema has improved. She is alert and oriented today. Labs/imaging reviewed: -WBC 3.3 Hgb 8.1 Plt 90 Cr 1.35 K 3.9 -Urine Cx; ESBL Plan: continue current treatment, continue IV Invanz. Monitor labs prn. Replace electrolytes as per protocol. Continue home medications. PT/OT as tolerated. Patient will be discharged on Wed. Past Medical Family Social History Allergies: Allergies Sulfa (Sulfonamide Antibiotics) (SULFA) Allergy (Verified 01/02/25 12:53) Vital Signs and I&O's Intake and Output: Intake & Output 01/05/25 01/06/25 01/07/25 01/08/25 23:59 23:59 23:59 23:59 Intake Total 440 / 440 245 / 245 520 / 520 60 / 60 Balance 440 / 440 245 / 245 520 / 520 60 / 60 Physical Exam Oriented: Normal Respiratory: Normal Cardiovascular: Normal Auscultation: Bowel Sounds: Normal Skin: Bruising and Other (chronic venous stasis b/l LE ) Musculoskeletal: Normal Psychiatric: Normal Mood Description: Calm Affect: Normal Speech Pattern: Clear and Appropriate Laboratory and Diagnostics 01/07/25 06:12 01/07/25 06:12 Labs: Laboratory WBC 3.3 X10^3/uL (3.6-10.0) L 01/07/25 06:12 RBC 2.49 X10^6/uL (3.5-5.4) L 01/07/25 06:12 Hgb 8.1 g/dL (12.0-16.0) L 01/07/25 06:12 Hct 24.4 % (36.0-47.0) L 01/07/25 06:12 MCV 98.1 fL (80.0-100.0) 01/07/25 06:12 MCH 32.7 pg (27.0-34.0) 01/07/25 06:12 MCHC 33.3 g/dL (33.0-35.0) 01/07/25 06:12 RDW 15.9 % (11.6-16.5) 01/07/25 06:12 Plt Count 90 X10^3/uL (150.0-450.0) L 01/07/25 06:12 Plt Count Comment Decreased (ADEQUATE) A 01/07/25 06:12 MPV 8.7 fL (7.4-11.0) 01/07/25 06:12 Neut % (Auto) 52.0 % (42.0-75.0) 01/07/25 06:12 Lymph % (Auto) 29.8 % (21.0-51.0) 01/07/25 06:12 [place] % (Auto) 11.5 % (0.0-13.0) 01/07/25 06:12 Eos % (Auto) 5.8 % (0.9-2.9) H 01/07/25 06:12 Baso % (Auto) 0.9 % (0.2-1.0) 01/07/25 06:12 Neut # (Auto) 1.7 x10^3/uL (2.2-4.8) L 01/07/25 06:12 Lymph # (Auto) 1.0 X10^3/uL (1.3-2.9) L 01/07/25 06:12 [place] # (Auto) 0.4 x10^3/uL (0.3-0.8) 01/07/25 06:12 Eos # (Auto) 0.2 x10^3/uL (0.0-0.2) 01/07/25 06:12 Baso # (Auto) 0.0 X10^3/uL (0.0-0.1) 01/07/25 06:12 Absolute Nucleated RBC 0.3 /100WBC 01/07/25 06:12 Total Counted 50 01/07/25 06:12 Neutrophils % (Manual) 56 % (39-76) 01/07/25 06:12 Band Neutrophils % 1 % (0-10) 01/03/25 04:35 Lymphocytes % (Manual) 28 % (13-43) 01/07/25 06:12 Monocytes % (Manual) 12 % (4-9) H 01/07/25 06:12 Eosinophils % (Manual) 4 % (0-6) 01/07/25 06:12 Basophils % (Manual) 1 % (0-1) 01/06/25 06:10 Plt Morphology Comment Normal (NORMAL) 01/07/25 06:12 RBC Morphology Normal (NORMAL) 01/07/25 06:12 Sodium 142 mmol/L (136-145) 01/07/25 06:12 Corrected Sodium TNP 01/07/25 06:12 Potassium 3.9 mmol/L (3.5-5.1) 01/07/25 06:12 Chloride 109 mmol/L (98-107) H 01/07/25 06:12 Carbon Dioxide 26.0 mmol/L (21-32) 01/07/25 06:12 BUN 19 mg/dL (7-18) H 01/07/25 06:12 Creatinine 1.35 mg/dL (0.55-1.02) H 01/07/25 06:12 Est GFR (MDRD) Af Amer 48 (>60) L 01/07/25 06:12 Est GFR (MDRD) Non-Af 40 (>60) L 01/07/25 06:12 Glucose 78 mg/dL (65-99) 01/07/25 06:12 Calcium 8.1 mg/dL (8.5-10.1) L 01/07/25 06:12 Corrected Calcium 9.5 mg/dL (8.5-10.1) 01/07/25 06:12 Magnesium 1.9 mg/dL (2.0-2.9) L 01/07/25 06:12 Ferritin 1730 ng/mL (8-252) H 01/08/25 05:12 Total Bilirubin 0.80 mg/dL (0.2-1.0) 01/07/25 06:12 AST 61 Units/L (15-37) H 01/07/25 06:12 ALT 31 Units/L (12-78) 01/07/25 06:12 Alkaline Phosphatase 109 Units/L (46-116) 01/07/25 06:12 Total Protein 6.3 g/dL (6.4-8.2) L 01/07/25 06:12 Albumin 2.3 g/dL (3.4-5.0) L 01/07/25 06:12 Globulin 4.0 g/dL (2.5-4.5) 01/07/25 06:12 Albumin/Globulin Ratio 0.6 Ratio (1.1-2.1) L 01/07/25 06:12 Plan (1) UTI due to extended-spectrum beta lactamase (ESBL) producing Escherichia coli: Status: Acute (2) Dehydration: Status: Acute (3) Generalized weakness: Status: Acute (4) Thrombocytopenia: Status: Chronic (5) Chronic renal insufficiency: Status: Chronic Qualifiers: Chronic kidney disease stage: unspecified stage Qualified Code(s): N 18.9 - Chronic kidney disease, unspecified (6) A-fib: Status: Chronic Qualifiers: Atrial fibrillation type: paroxysmal Qualified Code(s): I48.0 - Paroxysmal atrial fibrillation
[2025-01-08] MEDS: NS 250 ML IV 250 ML IV ONE (16:43)
[2025-01-09] MEDS ORDERED: CONSULT PHARMACY - POTASSIUM & MAGNESIUM XX SCH (08:00)
[2025-01-09] MEDS: MAG-OX TAB PO SCH (08:11)
[2025-01-10 05:51] LABS: MEAN PLATELET VOLUME 9.1 fL (7.4-11.0); RED CELL DISTRIBUTION WIDTH 17.0 % (11.6-16.5)
[2025-01-10 06:05] LABS: COR CA(FOR HYPOALB) 9.7 mg/dL (8.5-10.1); CREATININE 1.27 mg/dL (0.55-1.02); eGFR NON BLACK RACES 43 (>60)
[2025-01-10 08:07] VITALS: BP 149/75; PULSE 83; RESP 18; TEMP 97.3; O2SAT 97
[2025-01-10] MEDS: TRICOR TAB 48 MG PO SCH (09:56)
--- NOTE | 2025-01-11 08:48 | W.DIS.FURT ---
Summary of Discharge Discharge Summary of Date Date of Exam: 01/10/25 Admission Date Date of Admission: 01/02/25 Admission Diagnosis Hospital Course: Patient is a 79-year-old female who was admitted for swing bed for IV antibiotics. She was treated for ESBL E. coli UTI with Invanz. She also worked with physical therapy as tolerated. She was able to ambulate with a walker. She has completed antibiotic course for ESBL UTI. She will follow-up with PCP as scheduled. She is stable for discharge with home health. Discussed care with patient's son. Vital Signs: Vital Signs (72 hours) 01/07/25 09:37 01/07/25 19:00 01/07/25 20:00 Temperature 97.8 F Pulse Rate [Left] 71 Respiratory Rate 18 18 Blood Pressure [Left Arm] 110/50 Blood Pressure [Right Arm] O2 Sat by Pulse Oximetry 98 Oxygen Delivery Method Room Air Room Air Room Air FIO2% 01/07/25 21:00 01/08/25 07:00 01/08/25 08:00 Temperature 97.5 F L Pulse Rate [Left] 74 Respiratory Rate 18 Blood Pressure [Left Arm] 123/58 Blood Pressure [Right Arm] O2 Sat by Pulse Oximetry 98 Oxygen Delivery Method Room Air Room Air Room Air FIO2% 01/08/25 08:30 01/08/25 19:00 01/08/25 20:00 Temperature 97.9 F Pulse Rate [Left] 73 Respiratory Rate 19 Blood Pressure [Left Arm] Blood Pressure [Right Arm] 99/51 O2 Sat by Pulse Oximetry 98 Oxygen Delivery Method Room Air Room Air Room Air FIO2% 01/08/25 20:16 01/09/25 07:00 01/09/25 07:19 Temperature 98.5 F Pulse Rate [Left] 69 Respiratory Rate 18 Blood Pressure [Left Arm] Blood Pressure [Right Arm] 120/58 O2 Sat by Pulse Oximetry 99 Oxygen Delivery Method Room Air Room Air Room Air FIO2% 01/09/25 16:23 01/09/25 19:00 01/09/25 20:00 Temperature 98.4 F Pulse Rate [Left] 78 Respiratory Rate 19 Blood Pressure [Left Arm] Blood Pressure [Right Arm] 147/64 O2 Sat by Pulse Oximetry 95 Oxygen Delivery Method Room Air Room Air Room Air FIO2% 01/09/25 20:44 01/09/25 21:22 01/09/25 22:22 Temperature Pulse Rate [Left] Respiratory Rate 19 19 Blood Pressure [Left Arm] Blood Pressure [Right Arm] O2 Sat by Pulse Oximetry Oxygen Delivery Method Room Air FIO2% 01/10/25 07:00 01/10/25 08:00 Temperature 97.3 F L Pulse Rate [Left] 83 Respiratory Rate 18 Blood Pressure [Left Arm] Blood Pressure [Right Arm] 149/75 O2 Sat by Pulse Oximetry 97 Oxygen Delivery Method Room Air Room Air FIO2% Labs: Laboratory Last Values WBC 4.1 X10^3/uL (3.6-10.0) 01/10/25 05:19 RBC 2.80 X10^6/uL (3.5-5.4) L 01/10/25 05:19 Hgb 9.2 g/dL (12.0-16.0) L 01/10/25 05:19 Hct 27.3 % (36.0-47.0) L 01/10/25 05:19 MCV 97.4 fL (80.0-100.0) 01/10/25 05:19 MCH 32.9 pg (27.0-34.0) 01/10/25 05:19 MCHC 33.8 g/dL (33.0-35.0) 01/10/25 05:19 RDW 17.0 % (11.6-16.5) H 01/10/25 05:19 Plt Count 95 X10^3/uL (150.0-450.0) L 01/10/25 05:19 Plt Count Comment Decreased (ADEQUATE) A 01/07/25 06:12 MPV 9.1 fL (7.4-11.0) 01/10/25 05:19 Neut % (Auto) 64.1 % (42.0-75.0) 01/10/25 05:19 Lymph % (Auto) 25.2 % (21.0-51.0) 01/10/25 05:19 [place] % (Auto) 6.5 % (0.0-13.0) 01/10/25 05:19 Eos % (Auto) 3.4 % (0.9-2.9) H 01/10/25 05:19 Baso % (Auto) 0.8 % (0.2-1.0) 01/10/25 05:19 Neut # (Auto) 2.6 x10^3/uL (2.2-4.8) 01/10/25 05:19 Lymph # (Auto) 1.0 X10^3/uL (1.3-2.9) L 01/10/25 05:19 [place] # (Auto) 0.3 x10^3/uL (0.3-0.8) 01/10/25 05:19 Eos # (Auto) 0.1 x10^3/uL (0.0-0.2) 01/10/25 05:19 Baso # (Auto) 0.0 X10^3/uL (0.0-0.1) 01/10/25 05:19 Absolute Nucleated RBC 0.2 /100WBC 01/10/25 05:19 Total Counted 50 01/07/25 06:12 Neutrophils % (Manual) 56 % (39-76) 01/07/25 06:12 Band Neutrophils % 1 % (0-10) 01/03/25 04:35 Lymphocytes % (Manual) 28 % (13-43) 01/07/25 06:12 Monocytes % (Manual) 12 % (4-9) H 01/07/25 06:12 Eosinophils % (Manual) 4 % (0-6) 01/07/25 06:12 Basophils % (Manual) 1 % (0-1) 01/06/25 06:10 Plt Morphology Comment Normal (NORMAL) 01/07/25 06:12 RBC Morphology Normal (NORMAL) 01/07/25 06:12 Sodium 138 mmol/L (136-145) 01/10/25 05:19 Corrected Sodium TNP 01/10/25 05:19 Potassium 4.0 mmol/L (3.5-5.1) 01/10/25 05:19 Chloride 105 mmol/L (98-107) 01/10/25 05:19 Carbon Dioxide 28.4 mmol/L (21-32) 01/10/25 05:19 BUN 27 mg/dL (7-18) H 01/10/25 05:19 Creatinine 1.27 mg/dL (0.55-1.02) H 01/10/25 05:19 Est GFR (MDRD) Af Amer 52 (>60) L 01/10/25 05:19 Est GFR (MDRD) Non-Af 43 (>60) L 01/10/25 05:19 Glucose 79 mg/dL (65-99) 01/10/25 05:19 Calcium 8.7 mg/dL (8.5-10.1) 01/10/25 05:19 Corrected Calcium 9.7 mg/dL (8.5-10.1) 01/10/25 05:19 Magnesium 1.9 mg/dL (2.0-2.9) L 01/07/25 06:12 Ferritin 1730 ng/mL (8-252) H 01/08/25 05:12 Total Bilirubin 1.10 mg/dL (0.2-1.0) H 01/10/25 05:19 AST 55 Units/L (15-37) H 01/10/25 05:19 ALT 26 Units/L (12-78) 01/10/25 05:19 Alkaline Phosphatase 113 Units/L (46-116) 01/10/25 05:19 Total Protein 7.2 g/dL (6.4-8.2) 01/10/25 05:19 Albumin 2.8 g/dL (3.4-5.0) L 01/10/25 05:19 Globulin 4.4 g/dL (2.5-4.5) 01/10/25 05:19 Albumin/Globulin Ratio 0.6 Ratio (1.1-2.1) L 01/10/25 05:19 Reason For Visit: SWINGBED, ESBL UTI, FAILED OUTPATIENT TREATMENT Discharge Diagnosis All Active Problems (Updated 01/08/25 @ 09:35 by Anne-Marie Ren MD) UTI due to extended-spectrum beta lactamase (ESBL) producing Escherichia coli (Acute) Generalized weakness (Acute) Thrombocytopenia (Chronic) Chronic renal insufficiency (Chronic) UTI (urinary tract infection) (Acute) Dehydration (Acute) PAD (peripheral artery disease) (Chronic) A-fib (Chronic) Renal failure (ARF), acute on chronic (Acute) Anemia (Chronic) GI bleed (Acute) Hiatal hernia (Chronic) Plan of Treatment: Continue with present treatment and follow up plan. Pt is to keep follow up appointment as instructed and take medications as ordered. Discharge Medications Discharge Medications: Sulfa (Sulfonamide Antibiotics) (SULFA) Allergy (Verified 01/02/25 12:53) Discharge Disposition Discharge Disposition: Home with home health Discharge Condition: Stable Discharge Plan Discharge Plan Hospital Course: Patient is a 79-year-old female who was admitted for swing bed for IV antibiotics. She was treated for ESBL E. coli UTI with Invanz. She also worked with physical therapy as tolerated. She was able to ambulate with a walker. She has completed antibiotic course for ESBL UTI. She will follow-up with PCP as scheduled. She is stable for discharge with home health. Discussed care with patient's son. Patient Disposition: HOME HEALTH SERVICE Condition: Stable Health Concerns: Post Hospitalization: new medications and changes needed to prevent readmission or further decline. Pt educated and given instructions on all concerns. Care Plan Goals: Problem: Pain/Alteration in Comfort Goal: Improve/ Resolve Pain; Achieve Pain Tolerance Instructions: Take pain medications as prescribed. Contact your primary care provider if your pain is unrelieved or worsens. Follow up with primary care provider as directed. Plan of Treatment: Continue with present treatment and follow up plan. Pt is to keep follow up appointment as instructed and take medications as ordered. Prescription drug monitoring program results: PDMP reviewed and no concerns identified Prescriptions: Continued cetirizine 10 mg tablet 10 mg PO QDAY levetiracetam 500 mg tablet 500 mg PO BID isosorbide mononitrate 30 mg tablet extended release 24 hr 30 mg PO QAM alprazolam 0.25 mg tablet 0.25 mg PO BID PRN (Reason: anxiety) potassium chloride 20 mEq tablet,ER particles/crystals 20 meq PO QDAY levothyroxine 50 mcg tablet 50 mcg PO QAM ropinirole 2 mg tablet 2 mg PO QPM pantoprazole 40 mg tablet,delayed release (DR/EC) 40 mg PO QDAY simvastatin 20 mg tablet 20 mg PO QPM montelukast 10 mg tablet 10 mg PO QDAY furosemide 20 mg tablet 20 mg PO QDAY metoprolol succinate 25 mg tablet extended release 24 hr 25 mg PO QAM fenofibrate 160 mg tablet 160 mg PO QDAY Follow ups/Referrals Follow ups/Referrals: RONEN RUEDA HEALT [STAFF PHYSICIAN, Unknown] - 1 WEEK Instructions Instructions: Urinary Tract Infection, Female, Fall Prevention in the Home Stand Alone Forms: Excuse From Work or School, Find Help Web Site, Post Hospi cuate Follow Up Care Print Language: MALTESE
== END 2025-01-10 12:00 | disposition home health service (06) | DRG 690 ==
LOC: MED/SURG 09:00
PROVIDERS: ADMIT Internal Medicine; ATTEND Internal Medicine